=== PATIENT | female | born 1950 | race Two or more races ===

== ENCOUNTER 2017-07-21 04:51 | Inpatient (IN) | payer SELFPAY ==
[~2017-07-21] VITALS: Ht 157.5 cm; Wt 68.0 kg
[2017-07-21] VITALS (20 sets, daily range): BP systolic 70–156; BP diastolic 35–94
[2017-07-21] MEDS ORDERED: Morphine Sulfate 4mg/ml Inj IVP ONE (05:00)
--- NOTE | 2017-07-21 05:03 | Emergency Room Report ---
History of Present Illness General Chief Complaint: Abdominal Pain Source: Patient (RAYNA GORE M.D.) Present Illness HPI This is a 66-year-old female with no past medical history. However she hasn't seen a doctor in many decades. She presents with chief complaint abdominal pain his been on off for 2 weeks. Been getting worse. Per her she's been having fever nightly. It was worse tonight so he called 911. Patient has vomiting and diarrhea. [id number] medication for diarrhea helped. Pain is diffuse in nature. Crampy. Sharp. 8/10. No urinary complaint. He said that fever was high tonight and she was delirious. (RAYNA GORE M.D.) Allergies: Coded Allergies: No Known Allergies (Unverified , 07/21/17) Patient History Past Medical History: none, see triage record, old chart reviewed Past Surgical History: Pertinent Family History: none Social History: Denies: smoking Now: No Immunizations: other Reviewed Nursing Documentation: PMH: Agreed, PSxH: Agreed (RAYNA GORE M.D.) Review of Systems Constitutional: Reports: fever Eye: Denies: eye pain, blurred vision ENT: Denies: ear pain, nose congestion, throat swelling Respiratory: Denies: cough, shortness of breath Cardiovascular: Denies: chest pain, palpitations Gastrointestinal: Reports: abdominal pain, diarrhea, nausea, vomiting Musculoskeletal: Denies: back pain, joint pain Skin: Denies: rash Neurological: Denies: headache, numbness Endocrine: Denies: increased thirst, increased urine Hematologic/Lymphatic: Denies: easy bruising All Other Systems: negative except mentioned in HPI (RAYNA GORE M.D.) Physical Exam Vital Signs Date Time Temp Pulse Resp B/P (MAP) Pulse Ox O2 Delivery O2 Flow Rate FiO2 07/21/17 04:51 97.0 90 24 89/50 95 Room Air vitals with hypotension Sp02 EP Interpretation: reviewed, normal General Appearance: well appearing, no apparent distress, alert Head: normocephalic, atraumatic Eyes: bilateral eye PERRL, bilateral eye EOMI ENT: hearing grossly normal, normal pharynx Neck: full range of motion, supple, no meningismus Respiratory: chest non-tender, lungs clear, normal breath sounds Cardiovascular #1: regular rate, rhythm, no murmur Gastrointestinal: normal bowel sounds, no mass, no organomegaly, no bruit, non- distended, tenderness - Diffuse Musculoskeletal: back normal, normal range of motion Neurologic: alert, oriented x3 Psychiatric: mood/affect normal Skin: warm/dry (RAYNA GORE M.D.) Procedures Critical Care Time Critical Care Time Critical care is mandated in this patient who presented with septic shock from peritonitis. Patient require my urgent intervention to attenuate the risks of metabolic collapse which may lead to cardiovascular collapse and . Critical care time is 35 minutes excluding any reportable procedure. Critical care time included evaluation, multiple reevaluation, looking at old charts, interpreting laboratory and diagnostic data, discussing case with patient and family and consultants, and charting. (RAYNA GORE M.D.) Medical Decision Making Diagnostic Impression: Primary Impression: Peritonitis (acute) generalized Additional Impressions: ARF (acute renal failure) Qualified Codes: N17.9 - Acute kidney failure, unspecified Diabetes mellitus, new onset Acute cholangitis Septic shock ER Course This patient presents with abdominal pain and fever for the last 2 weeks. On exam she has peritonitis. CT scan reading is pending. Her white count is extremely high with a bandemia. She has renal failure and high glucose. Antibiotics given. IV fluid given. Patient will be going to the ICU. Laboratory Tests Test 07/21/17 05:00 White Blood Count 42.2 K/UL (4.8-10.8) *H Red Blood Count 5.13 M/UL (4.20-5.40) Hemoglobin 14.8 G/DL (12.0-16.0) Hematocrit 44.9 % (37.0-47.0) Mean Corpuscular Volume 88 FL (80-99) Mean Corpuscular Hemoglobin 28.9 PG (27.0-31.0) Mean Corpuscular Hemoglobin Concent 33.1 G/DL (32.0-36.0) Red Cell Distribution Width 13.7 % (11.6-14.8) Platelet Count 13 K/UL (150-450) L Mean Platelet Volume 8.2 FL (6.5-10.1) Neutrophils (%) (Auto) % (45.0-75.0) Lymphocytes (%) (Auto) % (20.0-45.0) Monocytes (%) (Auto) % (1.0-10.0) Eosinophils (%) (Auto) % (0.0-3.0) Basophils (%) (Auto) % (0.0-2.0) Differential Total Cells Counted 100 Neutrophils % (Manual) 71 % (45-75) Lymphocytes % (Manual) 4 % (20-45) L Monocytes % (Manual) 6 % (1-10) Eosinophils % (Manual) 0 % (0-3) Basophils % (Manual) 0 % (0-2) Band Neutrophils 19 % (0-8) H Platelet Estimate Decreased L Platelet Morphology Normal Red Blood Cell Morphology Normal Prothrombin Time 10.4 SEC (9.30-11.50) Prothromb Time International Ratio 1.0 (0.9-1.1) Activated Partial Thromboplast Time 34 SEC (23-33) H Sodium Level 122 MMOL/L (136-145) L Potassium Level 3.9 MMOL/L (3.5-5.1) Chloride Level 82 MMOL/L (98-107) L Carbon Dioxide Level 16 MMOL/L (21-32) L Anion Gap 25 mmol/L (5-15) H Blood Urea Nitrogen 101 mg/dL (7-18) H Creatinine 5.8 MG/DL (0.55-1.30) H Estimat Glomerular Filtration Rate 7.3 mL/min (>60) Glucose Level 458 MG/DL (74-106) H Lactic Acid Level 11.10 mmol/L (0.66-2.22) H Calcium Level 9.2 MG/DL (8.5-10.1) Total Bilirubin 9.9 MG/DL (0.2-1.0) H Direct Bilirubin 8.6 MG/DL (0.0-0.3) H Aspartate Amino Transf (AST/SGOT) 215 U/L (15-37) H Alanine Aminotransferase (ALT/SGPT) 208 U/L (12-78) H Alkaline Phosphatase 840 U/L (46-116) H Total Protein 6.4 G/DL (6.4-8.2) Albumin 1.9 G/DL (3.4-5.0) L Globulin 4.5 g/dL Albumin/Globulin Ratio 0.4 (1.0-2.7) L Lab Results Impression labs with severe leukocytosis and bandemia. Also with renal failure and biliary obstruction (RAYNA GORE M.D.) ER Course I received signout 66-year-old female, abdominal pain, has not seen a doctor in many years, tachycardic, hypotensive Has received Zosyn and Levaquin, currently have received 1.5 L, pending further fluid resuscitation, current blood pressure is 99/48 with a map of 61. Heart rate is 77 Patient currently states that she feels better, after fluids and pain medication , her abdomen is not peritoneal at this time, however she does have some right upper quadrant tenderness Patient has a white count of 40, elevated LFTs. ARF, potassium 3.9. patient is making urine. CAT scan of the abdomen pelvis revealing heterogeneous mass versus abscess versus infarction versus neoplasm in liver, with locules branching gas/air. Patient with acute cholangitis based on CT findings, and clinical exam. I spoke to Dr Villagomez who is aware of patient's case, also noted that Dr Carroll from GI is also aware of patient. I spoke to Dr. Baum from surgery who is notified of the case. Patient to be admitted to ICU (Stephanie Khan M.D.) EKG Diagnostic Results Rate: normal Rhythm: NSR ST Segments: no acute changes (RAYNA GORE M.D.) Rhythm Strip Diag. Results Rhythm Strip Time: 06:29 EP Interpretation: yes Rate: 81 Rhythm: NSR, no PVC's, no ectopy (RAYNA GORE M.D.) CT/MRI/US Diagnostic Results CT/MRI/US Diagnostic Results : Imaging Test Ordered: CT abd and pelvis (RAYNA GORE M.D.) Last Vital Signs Date Time Temp Pulse Resp B/P (MAP) Pulse Ox O2 Delivery O2 Flow Rate FiO2 07/21/17 04:51 97.0 90 24 89/50 95 Room Air Status: improved (RAYNA GORE M.D.) Disposition: ADMITTED INPATIENT Condition: Critical Scripts No Active Prescriptions or Reported Meds RAYNA GORE M.D. Jul 21, 2017 05:03 Stephanie Khan M.D. Jul 21, 2017 06:58
[2017-07-21] MEDS ORDERED: Tubing IV Cassette IV ONE (05:05)
[2017-07-21 05:21] LABS: MEAN CORPUSCULAR HEMOGLOBIN 28.9 PG (27.0-31.0); MEAN CORPUSCULAR HGB CONC 33.1 G/DL (32.0-36.0); MEAN CORPUSCULAR VOLUME 88 FL (80-99); MEAN PLATELET VOLUME 8.2 FL (6.5-10.1); PLATELET COUNT 13 K/UL (150-450); RED BLOOD COUNT 5.13 M/UL (4.20-5.40); RED CELL DISTRIBUTION WIDTH 13.7 % (11.6-14.8)
[2017-07-21 05:29] LABS: WHITE BLOOD COUNT 42.2 K/UL (4.8-10.8)
[2017-07-21 05:34] LABS: ANION GAP 25 mmol/L (5-15); CALCIUM 9.2 MG/DL (8.5-10.1); CARBON DIOXIDE 16 MMOL/L (21-32); CHLORIDE 82 MMOL/L (98-107); CREATININE 5.8 MG/DL (0.55-1.30); GLOMERULAR FILTRATION RATE 7.3 mL/min (>60); POTASSIUM 3.9 MMOL/L (3.5-5.1); SODIUM 122 MMOL/L (136-145)
[2017-07-21 05:41] LABS: PROTHROMBIN TIME 10.4 SEC (9.30-11.50)
[2017-07-21 05:48] LABS: ALANINE AMINOTRANSFERASE 208 U/L (12-78); ALBUMIN/GLOBULIN RATIO 0.4 (1.0-2.7); ASPARTATE AMINO TRANSFERASE 215 U/L (15-37); TOTAL PROTEIN 6.4 G/DL (6.4-8.2)
[2017-07-21 05:52] LABS: BILIRUBIN,DIRECT 8.6 MG/DL (0.0-0.3); REFLEX LACTIC ACID YES OR NO YES
[2017-07-21 05:56] LABS: BAND NEUTROPHILS % (MANUAL) 19 % (0-8); LYMPHOCYTES % (MANUAL) 4 % (20-45); NEUTROPHILS % (MANUAL) 71 % (45-75); TOTAL CELLS COUNTED 100
[2017-07-21] MEDS ORDERED: Zosyn 3.375gm inj ONE (05:56)
[2017-07-21 05:58] LABS: BASOPHILS % (MANUAL) 0 % (0-2); EOSINOPHILS % (MANUAL) 0 % (0-3); PLATELET ESTIMATE DECREASED
[2017-07-21 05:59] LABS: PLATELET MORPHOLOGY NORMAL
[2017-07-21] MEDS ORDERED: Piperacillin/Tazobactam 3.375 GM in NS 55 ML IVPB ONE (06:00)
[2017-07-21 06:42] LABS: APPEARANCE,URINE VERY CLOUDY; KETONES,URINE NEGATIVE (NEGATIVE); LEUKOCYTE ESTERASE ,URINE 3+ (NEGATIVE); NITRITE,URINE NEGATIVE (NEGATIVE); PH,URINE 5 (4.5-8.0); PROTEIN,URINE 3+ (NEGATIVE); UROBILINOGEN,URINE 4 MG/DL (0.0-1.0)
[2017-07-21 06:55] LABS: AMORPHOUS SEDIMENT,UR MANY /LPF; BACTERIA,URINE MODERATE /HPF; ICTOTEST POSITIVE; SQUAMOUS EPITHELIAL CELL,UR MODERATE /LPF (NONE/OCC)
[2017-07-21] MEDS ORDERED: Acetaminophen 500mg (ES) tab ORAL PRN ×2 (09:45→10:00)
[2017-07-21] MEDS ORDERED: D5NS 1,000 ML IV SCH (10:00)
[2017-07-21] MEDS ORDERED: D5 1/2NS 1,000 ML IV SCH (10:15)
--- NOTE | 2017-07-21 10:27 | Diagnostic Imaging Report ---
Indication: Abdominal pain x8 days Technique: Spiral acquisitions obtained through the abdomen and pelvis. No oral contrast utilized, per emergency room physician request No IV contrast utilized, per referring physician request.. Multiplanar reconstructions were generated. Total dose length product 961 mGycm. CTDIvol(s) 18 mGy. Dose reduction achieved using automated exposure control Comparison: None Findings: Lack of IV contrast limits assessment of the solid organs. Liver is mildly enlarged. There is a large area of low attenuation within the liver. This involves predominantly segments 8 and 5. Gas bubbles are seen at the periphery of this which appear equivocally somewhat tubular. There is a large calcified gallstone. The gallbladder is nondistended. No biliary ductal dilatation. The pancreas, spleen, adrenals, kidneys are unremarkable. No mesenteric or retroperitoneal mass or adenopathy. No pelvic mass or adenopathy. The uterus contains a marked artery calcifications. There is extensive colonic diverticulosis. The appendix is normal. No small bowel distention. No free or loculated intraperitoneal air or fluid is evident. The distal esophagus, stomach, duodenum are unremarkable. There are bilateral fat-containing small inguinal hernias. The included lung bases demonstrate considerable atelectatic changes. There are degenerative changes of the lumbar spine. There are degenerative changes of both hips. Impression: Masslike lesion in the right hepatic lobe, as described. This could represent abscess, neoplasm, or infarct. Recommend followup CT or MRI imaging with contrast if possible Tubular gas at the periphery of the lesion. This could represent pneumobilia, but the fact that all of the gas appears related to the above lesion raises concern for infection with gas-forming organism Mild hepatomegaly Cholelithiasis Diverticulosis. No evidence of diverticulitis Considerable basilar bilateral pulmonary atelectatic changes Other findings as noted, including degenerative spondylosis, degenerative changes of both hips, bilateral fat-containing inguinal hernias. This agrees with the preliminary interpretation provided overnight by [facility]. The CT scanner at [facility] is accredited by the [employer] and the scans are performed using protocols designed to limit radiation exposure to as low as reasonably achievable to attain images of sufficient resolution adequate for diagnostic evaluation.
--- NOTE | 2017-07-21 10:33 | Consultation ---
History of Present Illness General Date patient seen: Jul 21, 2017 Chief Complaint: Abdominal Pain Present Illness HPI 66 year old female presented to ED complaining of worsening abdominal pain for 2 weeks. As per patient she first began to note some vague upper abdominal pain 2 weeks ago. She does not regularly see a medical doctor so she decided to wait for pain to resolve. Pain progressively worsened over the subsequent days. Pain described as generalized cramping upper abdominal pain with sharp RUQ pain intermittently. Pain associated with nausea and episodes of non bloody emesis. Patient states she was febrile with night sweats for the past few nights. As her condition did not improve she came to ED for evaluation. In ED she was found to have leukocytosis >40k, abdominal tenderness, renal insufficiency, elevated LFT's, lactic acid 11, t bili>10. CT scan demonstrated air in biliary tree and "mass" in anterior lateral liver. Surgery called to evaluate. When seen at bedside, patient states that she is feeling much better since she received fluid resuscitation and pain meds. currently no nausea or emesis. patient states she has not seen a doctor in years and does not know of any medical problems. she does not believe she has any medical problems. she cannot recall any surgery prior. Allergies: Coded Allergies: No Known Allergies (Unverified , 07/21/17) Medication History No Active Prescriptions or Reported Meds Patient History History Provided By: Patient Healthcare decision maker Resuscitation status Advanced Directive on File Past Medical/Surgical History Past Medical/Surgical History: (1) Acute cholangitis (2) Diabetes mellitus, new onset (3) Septic shock (4) Peritonitis (acute) generalized (5) ARF (acute renal failure) (6) Thrombocytopenia Review of Systems Constitutional: Reports: chills, sweats, fever, malaise Eye: Denies: no symptoms, see HPI, eye pain, blurred vision, tearing, double vision, nose pain, nose congestion, acuity changes, discharge, other ENT: Denies: no symptoms, see HPI, ear pain, ear discharge, nose pain, nose congestion, throat pain, throat swelling, mouth pain, hearing loss, nasal discharge, other Respiratory: Denies: no symptoms, see HPI, cough, orthopnea, shortness of breath, stridor, wheezing, ARANGO, sputum, other Cardiovascular: Denies: no symptoms, see HPI, chest pain, edema, palpitations, syncope, PND, other Gastrointestinal: Reports: abdominal pain, nausea, vomiting Genitourinary: Denies: no symptoms, see HPI, discharge, dysuria, frequency, hematuria, pain, retention, incontinence, urgency, vag bleed/dc, other Musculoskeletal: Denies: no symptoms, see HPI, back pain, gout, joint pain, joint swelling, muscle pain, muscle stiffness, other Skin: Denies: no symptoms, see HPI, rash, change in color, change in hair/nails , dryness, lesions, other Psychiatric: Denies: no symptoms, see HPI, prior hx, anxiety, depressed feelings, emotional problems, SI, HI, hallucinations, other Neurological: Denies: no symptoms, see HPI, headache, numbness, paresthesia, seizure, tingling, tremors, focal weakness, syncope, dizziness, other Endocrine: Denies: no symptoms, see HPI, excessive sweating, flushing, intolerance to temperature, increased thirst, increased urine, unexplained weight loss, other Hematologic/Lymphatic: Denies: no symptoms, see HPI, anemia, blood clots, easy bleeding, easy bruising, swollen glands, diathesis, other All Other Systems: negative except mentioned in HPI Physical Exam General Appearance: no apparent distress, alert Lines, tubes and drains: peripheral HEENT: PERRL Neck: normal inspection Respiratory/Chest: no respiratory distress, no accessory muscle use, respiratory distress Cardiovascular/Chest: regular rhythm, tachycardia Abdomen: normal bowel sounds, soft, no organomegaly, no mass, other - no peritonitis or acute abdomen. soft, non distended, obese, no rebound or guarding but does states mild pain upon palpation of upper right and left quadrant Extremities: normal inspection Skin Exam: normal pigmentation Neurologic: alert, oriented x 3, responsive Last 24 Hour Vital Signs Date Time Temp Pulse Resp B/P (MAP) Pulse Ox O2 Delivery O2 Flow Rate FiO2 07/21/17 08:00 97.0 80 22 99/46 94 Nasal Cannula 4.0 07/21/17 07:52 80 22 99/46 94 Nasal Cannula 4.0 07/21/17 06:41 97.0 78 22 99/48 94 Nasal Cannula 4.0 07/21/17 05:50 97.0 07/21/17 04:51 97.0 90 24 89/50 95 Room Air Intake and Output 07/21/17 07/22/17 19:00 07:00 Intake Total 2205 ml Output Total 70 ml Balance 2135 ml Intake IV Total 2205 ml Output Urine Total 70 ml Laboratory Tests Test 07/21/17 05:00 07/21/17 06:20 07/21/17 07:00 07/21/17 09:30 White Blood Count 42.2 K/UL (4.8-10.8) *H Red Blood Count 5.13 M/UL (4.20-5.40) Hemoglobin 14.8 G/DL (12.0-16.0) Hematocrit 44.9 % (37.0-47.0) Mean Corpuscular Volume 88 FL (80-99) Mean Corpuscular Hemoglobin 28.9 PG (27.0-31.0) Mean Corpuscular Hemoglobin Concent 33.1 G/DL (32.0-36.0) Red Cell Distribution Width 13.7 % (11.6-14.8) Platelet Count 13 K/UL (150-450) L Mean Platelet Volume 8.2 FL (6.5-10.1) Neutrophils (%) (Auto) % (45.0-75.0) Lymphocytes (%) (Auto) % (20.0-45.0) Monocytes (%) (Auto) % (1.0-10.0) Eosinophils (%) (Auto) % (0.0-3.0) Basophils (%) (Auto) % (0.0-2.0) Differential Total Cells Counted 100 Neutrophils % (Manual) 71 % (45-75) Lymphocytes % (Manual) 4 % (20-45) L Monocytes % (Manual) 6 % (1-10) Eosinophils % (Manual) 0 % (0-3) Basophils % (Manual) 0 % (0-2) Band Neutrophils 19 % (0-8) H Platelet Estimate Decreased L Platelet Morphology Normal Red Blood Cell Morphology Normal Prothrombin Time 10.4 SEC (9.30-11.50) Prothromb Time International Ratio 1.0 (0.9-1.1) Activated Partial Thromboplast Time 34 SEC (23-33) H Sodium Level 122 MMOL/L (136-145) L Potassium Level 3.9 MMOL/L (3.5-5.1) Chloride Level 82 MMOL/L (98-107) L Carbon Dioxide Level 16 MMOL/L (21-32) L Anion Gap 25 mmol/L (5-15) H Blood Urea Nitrogen 101 mg/dL (7-18) H Creatinine 5.8 MG/DL (0.55-1.30) H Estimat Glomerular Filtration Rate 7.3 mL/min (>60) Glucose Level 458 MG/DL (74-106) H Lactic Acid Level 11.10 mmol/L (0.66-2.22) H 4.30 mmol/L (0.66-2.22) H Calcium Level 9.2 MG/DL (8.5-10.1) Total Bilirubin 9.9 MG/DL (0.2-1.0) H Direct Bilirubin 8.6 MG/DL (0.0-0.3) H Aspartate Amino Transf (AST/SGOT) 215 U/L (15-37) H Alanine Aminotransferase (ALT/SGPT) 208 U/L (12-78) H Alkaline Phosphatase 840 U/L (46-116) H Total Protein 6.4 G/DL (6.4-8.2) Albumin 1.9 G/DL (3.4-5.0) L Globulin 4.5 g/dL Albumin/Globulin Ratio 0.4 (1.0-2.7) L Urine Color Brown Urine Appearance Very cloudy Urine pH 5 (4.5-8.0) Urine Specific [place] 1.015 (1.005-1.035) Urine Protein 3+ (NEGATIVE) H Urine Glucose (UA) 2+ (NEGATIVE) H Urine Ketones Negative (NEGATIVE) Urine Occult Blood 3+ (NEGATIVE) H Urine Nitrite Negative (NEGATIVE) Urine Bilirubin 2+ (NEGATIVE) H Urine Ictotest Positive Urine Urobilinogen 4 MG/DL (0.0-1.0) H Urine Leukocyte Esterase 3+ (NEGATIVE) H Urine RBC 5-10 /HPF (0 - 2) H Urine WBC 5-10 /HPF (0 - 2) H Urine Squamous Epithelial Cells Moderate /LPF (NONE/OCC) H Urine Amorphous Sediment Many /LPF (NONE) H Urine Bacteria Moderate /HPF (NONE) H Troponin I Pending Triglycerides Level Pending Cholesterol Level Pending LDL Cholesterol Pending HDL Cholesterol Pending Cholesterol/HDL Ratio Pending Height (Feet): 5 Height (Inches): 3.00 Weight (Pounds): 150 Medications Current Medications Medications (Trade) Dose Ordered Sig/Eleanor Route PRN Reason Start Time Stop Time Status Last Admin Dose Admin Acetaminophen (Tylenol) 500 mg Q8H PRN ORAL For Pain 07/21/17 09:45 08/20/17 09:44 Acetaminophen (Tylenol) 500 mg Q8H PRN ORAL Temp> 100.5 07/21/17 10:00 08/20/17 09:59 Dextrose (Dextrose 50%) STAT PRN IV Hypoglycemia 07/21/17 10:15 08/20/17 10:14 UNV Dextrose/Sodium Chloride 1,000 ml @ 60 mls/hr [id number] IV 07/21/17 10:15 08/20/17 10:14 UNV Diphenhydramine HCl (Benadryl) 12.5 mg Q6H PRN IVP Itching/Pruritis 07/21/17 10:15 08/20/17 10:14 UNV Famotidine (Pepcid I.v.) 20 mg Q12HR IVP 07/21/17 21:00 08/20/17 20:59 UNV Insulin Aspart (NovoLOG) BEFORE MEALS AND HS SUBQ 07/21/17 11:30 08/20/17 11:29 UNV Morphine Sulfate (Morphine Sulfate) 1 mg Q4H PRN IVP pain scale 1-3 07/21/17 10:15 07/28/17 10:14 UNV Ondansetron HCl (Zofran) 4 mg Q6H PRN IVP Nausea & Vomiting 07/21/17 10:15 08/20/17 10:14 UNV Piperacillin Sod/ Tazobactam Sod 2.25 gm/Dextrose 55 ml @ 110 mls/hr Q12H IV 07/21/17 18:00 07/28/17 17:59 Sodium Chloride 1,000 ml @ 999 mls/hr Q1H1M PRN IV For SBP less than 100mmHg 07/21/17 09:45 08/20/17 09:44 Vancomycin HCl (Vanco rx to dose) 1 ea DAILY PRN MISC Per rx protocol 07/21/17 08:45 08/20/17 08:44 Vancomycin HCl/ Dextrose 250 ml @ 166.667 mls/hr ONCE ONCE IVPB 07/21/17 11:00 07/21/17 12:29 Assessment/Plan Problem List: (1) Cholelithiasis with acute cholangitis Assessment & Plan: 66 year old female with likely acute cholangitis. Currently afebrile but has been having fevers for days, tachycardic, hypotensive upon admission responsive to fluids, leukocytosis of 40+k, renal insufficiency, dehydration, abnormal lft's, uncontrolled DM, CT scan as above, exam as above. Patient is very sick with prolonged acute cholangitis prior to admission. fortunately she is responding to fluids and Abx. CT scan limited given lack of contrast. cannot give contrast at this time given renal insufficiency. -NPO -IV fluid resuscitation -IV Abx -Ultrasound Abdomen -GI to evaluate. given elevated t bili with direct component seems obstructive in nature. if still obstructed will require ERCP. possible MRCP first? will discuss with GI. -continue to trend labs -will follow with you. thank you for allowing me to participate in this patients care. ICD Codes: K80.20 - Calculus of gallbladder without cholecystitis without obstruction; K83.0 - Cholangitis SNOMED: [id number], [id number] Status: stable Tai Baum Jul 21, 2017 10:33
--- NOTE | 2017-07-21 10:38 | Pulmonolgy Critical Care Note ---
Critical Care - Asmt/Plan Problems: (1) ARF (acute renal failure) (2) Septic shock (3) Acute cholangitis Respiratory: monitor respiratory rate, adjust FIO2 Cardiac: continue to monitor HR/BP Renal: F/U I&O, keep IV fluid Infectious Disease: check cultures, continue antibiotics Gastrointestinal: hold feedings Endocrine: monitor blood sugar Hematologic: monitor H/H, transfuse if hgb<8.5 Neurologic: PRN Ativan, PRN Morphine, keep patient comfortable Notes Reviewed: brake repairer, cardio Discussed with: nurses, consultants, piano case makerdigital marketing project manager - Objective Last 24 Hour Vital Signs Date Time Temp Pulse Resp B/P (MAP) Pulse Ox O2 Delivery O2 Flow Rate FiO2 07/21/17 10:00 77 23 106/41 92 Nasal Cannula 3.0 07/21/17 09:00 76 21 99/43 93 Nasal Cannula 3.0 07/21/17 08:00 97.0 80 22 99/46 94 Nasal Cannula 4.0 07/21/17 08:00 97.9 78 21 121/53 93 Nasal Cannula 3.0 07/21/17 07:52 80 22 99/46 94 Nasal Cannula 4.0 07/21/17 06:41 97.0 78 22 99/48 94 Nasal Cannula 4.0 07/21/17 05:50 97.0 07/21/17 04:51 97.0 90 24 89/50 95 Room Air Status: awake Condition: critical HEENT: atraumatic Neck: full ROM Lungs: clear, chest wall tender Heart: HR/BP stable, HR/BP unstable Abdomen: soft, non-tender, active bowel sounds Extremities: no C/C/E, edema Critical Care - Subjective ROS Limited/Unobtainable: Yes ICU Day: 1 Interval Events: 66-year-old female with no past medical history presented to ER with chief complaint of abdominal pain for 2 weeks. she's been having fever nightly. She has vomiting and diarrhea. She was diagnosed with septic shock and acute cholangitis with accompanying ATN and hypotension. She is admitted to ICU for further referral. I&O: Intake and Output 07/21/17 07/22/17 19:00 07:00 Intake Total 2205 ml Output Total 70 ml Balance 2135 ml Intake IV Total 2205 ml Output Urine Total 70 ml CXR: cxr pending Labs: Laboratory Tests Test 07/21/17 05:00 07/21/17 06:20 07/21/17 07:00 07/21/17 09:30 White Blood Count 42.2 K/UL (4.8-10.8) *H Red Blood Count 5.13 M/UL (4.20-5.40) Hemoglobin 14.8 G/DL (12.0-16.0) Hematocrit 44.9 % (37.0-47.0) Mean Corpuscular Volume 88 FL (80-99) Mean Corpuscular Hemoglobin 28.9 PG (27.0-31.0) Mean Corpuscular Hemoglobin Concent 33.1 G/DL (32.0-36.0) Red Cell Distribution Width 13.7 % (11.6-14.8) Platelet Count 13 K/UL (150-450) L Mean Platelet Volume 8.2 FL (6.5-10.1) Neutrophils (%) (Auto) % (45.0-75.0) Lymphocytes (%) (Auto) % (20.0-45.0) Monocytes (%) (Auto) % (1.0-10.0) Eosinophils (%) (Auto) % (0.0-3.0) Basophils (%) (Auto) % (0.0-2.0) Differential Total Cells Counted 100 Neutrophils % (Manual) 71 % (45-75) Lymphocytes % (Manual) 4 % (20-45) L Monocytes % (Manual) 6 % (1-10) Eosinophils % (Manual) 0 % (0-3) Basophils % (Manual) 0 % (0-2) Band Neutrophils 19 % (0-8) H Platelet Estimate Decreased L Platelet Morphology Normal Red Blood Cell Morphology Normal Prothrombin Time 10.4 SEC (9.30-11.50) Prothromb Time International Ratio 1.0 (0.9-1.1) Activated Partial Thromboplast Time 34 SEC (23-33) H Sodium Level 122 MMOL/L (136-145) L Potassium Level 3.9 MMOL/L (3.5-5.1) Chloride Level 82 MMOL/L (98-107) L Carbon Dioxide Level 16 MMOL/L (21-32) L Anion Gap 25 mmol/L (5-15) H Blood Urea Nitrogen 101 mg/dL (7-18) H Creatinine 5.8 MG/DL (0.55-1.30) H Estimat Glomerular Filtration Rate 7.3 mL/min (>60) Glucose Level 458 MG/DL (74-106) H Lactic Acid Level 11.10 mmol/L (0.66-2.22) H 4.30 mmol/L (0.66-2.22) H Calcium Level 9.2 MG/DL (8.5-10.1) Total Bilirubin 9.9 MG/DL (0.2-1.0) H Direct Bilirubin 8.6 MG/DL (0.0-0.3) H Aspartate Amino Transf (AST/SGOT) 215 U/L (15-37) H Alanine Aminotransferase (ALT/SGPT) 208 U/L (12-78) H Alkaline Phosphatase 840 U/L (46-116) H Total Protein 6.4 G/DL (6.4-8.2) Albumin 1.9 G/DL (3.4-5.0) L Globulin 4.5 g/dL Albumin/Globulin Ratio 0.4 (1.0-2.7) L Urine Color Brown Urine Appearance Very cloudy Urine pH 5 (4.5-8.0) Urine Specific [place] 1.015 (1.005-1.035) Urine Protein 3+ (NEGATIVE) H Urine Glucose (UA) 2+ (NEGATIVE) H Urine Ketones Negative (NEGATIVE) Urine Occult Blood 3+ (NEGATIVE) H Urine Nitrite Negative (NEGATIVE) Urine Bilirubin 2+ (NEGATIVE) H Urine Ictotest Positive Urine Urobilinogen 4 MG/DL (0.0-1.0) H Urine Leukocyte Esterase 3+ (NEGATIVE) H Urine RBC 5-10 /HPF (0 - 2) H Urine WBC 5-10 /HPF (0 - 2) H Urine Squamous Epithelial Cells Moderate /LPF (NONE/OCC) H Urine Amorphous Sediment Many /LPF (NONE) H Urine Bacteria Moderate /HPF (NONE) H Hemoglobin A1c 11.5 % (4.3-6.0) H Troponin I Pending Triglycerides Level Pending Cholesterol Level Pending LDL Cholesterol Pending HDL Cholesterol Pending Cholesterol/HDL Ratio Pending RICK LEY Jul 21, 2017 10:38
[2017-07-21 10:43] LABS: CHOLESTEROL 165 MG/DL (< 200); CHOLESTEROL/HDL RATIO 16.5 (3.3-4.4)
[2017-07-21] MEDS ORDERED: Morphine Sulfate 2mg/ml Inj IVP PRN (10:45)
[2017-07-21] MEDS ORDERED: DiphenhydrAMINE 50mg/ml Inj IVP PRN (10:45)
[2017-07-21] MEDS ORDERED: Vancomycin 1250mg/D5W 250ml IVPB ONE (11:00)
--- NOTE | 2017-07-21 11:10 | GI Initial Consult Note ---
Sybil Galvez N.PZion 07/21/17 1110: History of Present Illness General Date patient seen: Jul 21, 2017 Time patient seen: 10:53 Reason for Hospitalization: Abdominal Pain Referring physician: TISH SAAVEDRA Reason for Consultation: CHOLANGITIS Present Illness HPI This is a 66-year-old female with no past medical history. However she hasn't seen a doctor in many decades. She presents with chief complaint abdominal pain his been on off for 2 weeks. Been getting worse. Per her she's been having fever nightly. It was worse tonight so he called 911. Patient has vomiting and diarrhea. [id number] medication for diarrhea helped. Pain is diffuse in nature. Crampy. Sharp. 8/10. No urinary complaint. He said that fever was high tonight and she was delirious. GI consulted for cholangitis based on CT. 66 year old female presented to ED complaining of worsening abdominal pain for 2 weeks. As per patient she first began to note some vague upper abdominal pain 2 weeks ago. She does not regularly see a medical doctor so she decided to wait for pain to resolve. Pain progressively worsened over the subsequent days. Pain described as generalized cramping upper abdominal pain with sharp RUQ pain intermittently. Pain associated with nausea and episodes of non bloody emesis. Patient states she was febrile with night sweats for the past few nights. As her condition did not improve she came to ED for evaluation. In ED she was found to have leukocytosis >40k, abdominal tenderness, renal insufficiency, elevated LFT's, lactic acid 11, t bili>10. CT scan demonstrated air in biliary tree and "mass" in anterior lateral liver. Pt seen at bedside with by bedside. NAD with no active N/V/D. No medical history per patient. No history of endoscopic / colonoscopy. Home Meds No Active Prescriptions or Reported Meds Med list reviewed/reconciled: Yes Allergies: Coded Allergies: No Known Allergies (Unverified , 07/21/17) Patient History Limited by: medical condition History Provided By: Patient PMH Narrative Past Medical History: none, see triage record, old chart reviewed Past Surgical History: Pertinent Family History: none Social History: Denies: smoking Now: No Immunizations: other Social History: Denies: smoking, alcohol use, drug use, other Review of Systems All Other Systems: negative except mentioned in HPI Physical Exam Vital Signs Date Time Temp Pulse Resp B/P (MAP) Pulse Ox O2 Delivery O2 Flow Rate FiO2 07/21/17 04:51 97.0 90 24 89/50 95 Room Air 07/21/17 06:41 4.0 Sp02 EP Interpretation: reviewed, normal Labs Laboratory Tests Test 07/21/17 05:00 07/21/17 06:20 07/21/17 07:00 07/21/17 09:30 White Blood Count 42.2 K/UL (4.8-10.8) *H Red Blood Count 5.13 M/UL (4.20-5.40) Hemoglobin 14.8 G/DL (12.0-16.0) Hematocrit 44.9 % (37.0-47.0) Mean Corpuscular Volume 88 FL (80-99) Mean Corpuscular Hemoglobin 28.9 PG (27.0-31.0) Mean Corpuscular Hemoglobin Concent 33.1 G/DL (32.0-36.0) Red Cell Distribution Width 13.7 % (11.6-14.8) Platelet Count 13 K/UL (150-450) L Mean Platelet Volume 8.2 FL (6.5-10.1) Neutrophils (%) (Auto) % (45.0-75.0) Lymphocytes (%) (Auto) % (20.0-45.0) Monocytes (%) (Auto) % (1.0-10.0) Eosinophils (%) (Auto) % (0.0-3.0) Basophils (%) (Auto) % (0.0-2.0) Differential Total Cells Counted 100 Neutrophils % (Manual) 71 % (45-75) Lymphocytes % (Manual) 4 % (20-45) L Monocytes % (Manual) 6 % (1-10) Eosinophils % (Manual) 0 % (0-3) Basophils % (Manual) 0 % (0-2) Band Neutrophils 19 % (0-8) H Platelet Estimate Decreased L Platelet Morphology Normal Red Blood Cell Morphology Normal Prothrombin Time 10.4 SEC (9.30-11.50) Prothromb Time International Ratio 1.0 (0.9-1.1) Activated Partial Thromboplast Time 34 SEC (23-33) H Sodium Level 122 MMOL/L (136-145) L Potassium Level 3.9 MMOL/L (3.5-5.1) Chloride Level 82 MMOL/L (98-107) L Carbon Dioxide Level 16 MMOL/L (21-32) L Anion Gap 25 mmol/L (5-15) H Blood Urea Nitrogen 101 mg/dL (7-18) H Creatinine 5.8 MG/DL (0.55-1.30) H Estimat Glomerular Filtration Rate 7.3 mL/min (>60) Glucose Level 458 MG/DL (74-106) H Lactic Acid Level 11.10 mmol/L (0.66-2.22) H 4.30 mmol/L (0.66-2.22) H Calcium Level 9.2 MG/DL (8.5-10.1) Total Bilirubin 9.9 MG/DL (0.2-1.0) H Direct Bilirubin 8.6 MG/DL (0.0-0.3) H Aspartate Amino Transf (AST/SGOT) 215 U/L (15-37) H Alanine Aminotransferase (ALT/SGPT) 208 U/L (12-78) H Alkaline Phosphatase 840 U/L (46-116) H Total Protein 6.4 G/DL (6.4-8.2) Albumin 1.9 G/DL (3.4-5.0) L Globulin 4.5 g/dL Albumin/Globulin Ratio 0.4 (1.0-2.7) L Urine Color Brown Urine Appearance Very cloudy Urine pH 5 (4.5-8.0) Urine Specific [place] 1.015 (1.005-1.035) Urine Protein 3+ (NEGATIVE) H Urine Glucose (UA) 2+ (NEGATIVE) H Urine Ketones Negative (NEGATIVE) Urine Occult Blood 3+ (NEGATIVE) H Urine Nitrite Negative (NEGATIVE) Urine Bilirubin 2+ (NEGATIVE) H Urine Ictotest Positive Urine Urobilinogen 4 MG/DL (0.0-1.0) H Urine Leukocyte Esterase 3+ (NEGATIVE) H Urine RBC 5-10 /HPF (0 - 2) H Urine WBC 5-10 /HPF (0 - 2) H Urine Squamous Epithelial Cells Moderate /LPF (NONE/OCC) H Urine Amorphous Sediment Many /LPF (NONE) H Urine Bacteria Moderate /HPF (NONE) H Hemoglobin A1c 11.5 % (4.3-6.0) H Troponin I 0.000 ng/mL (0.000-0.056) Triglycerides Level 671 MG/DL (30-150) H Cholesterol Level 165 MG/DL (< 200) LDL Cholesterol 68 mg/dL (<100) HDL Cholesterol 10 MG/DL (40-60) L Cholesterol/HDL Ratio 16.5 (3.3-4.4) H General Appearance: well appearing, no apparent distress, alert Head: normocephalic EENT: PERRL/EOMI, normal ENT inspection Neck: supple Respiratory: normal breath sounds, no respiratory distress Cardiovascular: normal rate Gastrointestinal: normal inspection, non tender, soft, normal bowel sounds, non -distended Rectal: deferred Genitourinary: no CVA tenderness Musculoskeletal: normal inspection, back normal Neurologic: normal inspection, alert, oriented x3, responsive Psychiatric: normal inspection, judgement/insight normal, memory normal Skin: normal inspection, normal color, no rash, warm/dry, palpation normal, well hydrated Lymphatic: normal inspection, no adenopathy Current Medications Current Medications Medications (Trade) Dose Ordered Sig/Eleanor Route PRN Reason Start Time Stop Time Status Last Admin Dose Admin Acetaminophen (Tylenol) 500 mg Q8H PRN ORAL For Pain 07/21/17 09:45 08/20/17 09:44 Acetaminophen (Tylenol) 500 mg Q8H PRN ORAL Temp> 100.5 07/21/17 10:00 08/20/17 09:59 Dextrose (Dextrose 50%) STAT PRN IV Hypoglycemia 07/21/17 10:45 08/20/17 10:44 Diphenhydramine HCl (Benadryl) 12.5 mg Q6H PRN IVP Itching/Pruritis 07/21/17 10:45 08/20/17 10:44 Famotidine (Pepcid I.v.) 20 mg Q12HR IVP 07/21/17 21:00 08/20/17 20:59 Insulin Aspart (NovoLOG) BEFORE MEALS AND HS SUBQ 07/21/17 11:30 08/20/17 11:29 Morphine Sulfate (Morphine Sulfate) 1 mg Q4H PRN IVP pain scale 1-3 07/21/17 10:45 07/28/17 10:44 Ondansetron HCl (Zofran) 4 mg Q6H PRN IVP Nausea & Vomiting 07/21/17 10:45 08/20/17 10:44 Piperacillin Sod/ Tazobactam Sod 2.25 gm/Dextrose 55 ml @ 110 mls/hr Q12H IV 07/21/17 18:00 07/28/17 17:59 Sodium Chloride 1,000 ml @ 150 mls/hr Q6H40M IV 07/22/17 11:00 08/21/17 10:59 Sodium Chloride 1,000 ml @ 999 mls/hr Q1H1M PRN IV For SBP less than 100mmHg 07/21/17 09:45 08/20/17 09:44 07/21/17 10:52 Vancomycin HCl (Vanco rx to dose) 1 ea DAILY PRN MISC Per rx protocol 07/21/17 08:45 08/20/17 08:44 Vancomycin HCl/ Dextrose 250 ml @ 166.667 mls/hr ONCE ONCE IVPB 07/21/17 11:00 07/21/17 12:29 GI: Plan Problems: (1) Cholelithiasis with acute cholangitis (2) Peritonitis (acute) generalized (3) Thrombocytopenia (4) Septic shock (5) Diabetes mellitus, new onset (6) Acute cholangitis Plan CT AP reviewed >> likely with acute cholangitis elevated triglycerides will consider MRCP pending abdominal U/S, if obstructed ERCP when stable. NPO + IVFs IV antibiotics follow LFTs DM mgmt H2B prophylaxis fu labs, lipase Discussed with Dr. Espinoza. Thank you for this patient referral, we will follow. HARI ESPINOZA 07/23/17 1002: History of Present Illness General Reason for Hospitalization: Abdominal Pain Present Illness Home Meds No Active Prescriptions or Reported Meds Allergies: Coded Allergies: No Known Allergies (Unverified , 07/21/17) GI: Plan Plan The patient was seen and examined at bedside and all new and available data was reviewed in the patients chart. I agree with the above findings, impression and plan. (Patient seen earlier today. Signature stamp does not reflect patient encounter time.). - MD [facility]La [facility] Chris N.P. Jul 21, 2017 11:10 HARI ESPINOZA Jul 23, 2017 10:02
[2017-07-21 11:18] LABS: IRON 59 ug/dL (50-175); TOTAL IRON BINDING CAPACITY 166 ug/dL (250-450)
--- NOTE | 2017-07-21 11:28 | Consultation ---
Consult Note Consult Note asked to eval for renal failure This is a 66-year-old female with no past medical history. However she hasn't seen a doctor in many decades. She presents with chief complaint abdominal pain his been on off for 2 weeks. Been getting worse. Per her she's been having fever nightly. It was worse tonight so he called 911. Patient has vomiting and diarrhea. [id number] medication for diarrhea helped. Pain is diffuse in nature. Crampy. Sharp. 8/10. No urinary complaint. He said that fever was high tonight and she was delirious. Past Surgical History: Review of Systems Constitutional: Reports: fever Gastrointestinal: Reports: abdominal pain, diarrhea, nausea, vomiting examined- data reviewed discussed with automotive artist/Plan (1) ARF (acute renal failure) (2) Septic shock (3) Acute cholangitis (4) DM OOC (5) High Lipids Plan: Hydrate- NPO Antibiotics- Monitor renal parameters Kidney KEI 2D echo avoid nephrotoxics GIANCARLO ALBERT Jul 21, 2017 11:28
[2017-07-21] MEDS ORDERED: NovoLOG Insulin Flexpen SUBQ SCH (11:30)
--- NOTE | 2017-07-21 11:40 | Consultation ---
History of Present Illness General Date patient seen: Jul 21, 2017 Time patient seen: 11:39 Chief Complaint: Abdominal Pain Referring physician: TISH SAAVEDRA Reason for Consultation: CHOLANGITIS Present Illness HPI 66 y/o F with no pertinent prior medical history(but haven't seen a doctor in years) presents to ED on 07/01 with intermittent and worsening diffuse(but more prominent upper and RUQ), crampy abdominal pain of for the last 2 weeks with associated nightly fevers, vomiting(non bloody) and diarrhea. Abd pain intensity of 8/10 upon admission. Denies urinary symptoms In ED found to have WBC up to >40, ALEX, elevated LFTs, lactic acidosis and TBili >10. CT scan demonstrated air in biliary tree and "mass" in anterior lateral liver. Hypotensive now to 70s Allergies: Coded Allergies: No Known Allergies (Unverified , 07/21/17) Medication History No Active Prescriptions or Reported Meds Patient History Healthcare decision maker Resuscitation status Advanced Directive on File Patient History Narrative Pmhx: none; C section Shx: Denies: smoking, alcohol use, drug use, other Fhx: non contributory Review of Systems ROS Narrative unable to obtai, patient lethargic Physical Exam Physical Exam Narrative Status: lethargic, bipap mask in place Condition: critical HEENT: atraumatic Neck: full ROM Lungs: clear, chest wall tender Heart: no murmurs Abdomen: soft, non-tender, active bowel sounds Extremities: no C/C/E, edema Last 24 Hour Vital Signs Date Time Temp Pulse Resp B/P (MAP) Pulse Ox O2 Delivery O2 Flow Rate FiO2 07/21/17 10:00 77 23 106/41 92 Nasal Cannula 3.0 07/21/17 09:00 76 21 99/43 93 Nasal Cannula 3.0 07/21/17 08:05 97.9 78 21 121/53 93 Nasal Cannula 3.0 07/21/17 08:00 97.0 80 22 99/46 94 Nasal Cannula 4.0 07/21/17 08:00 97.9 78 21 121/53 93 Nasal Cannula 3.0 07/21/17 07:52 80 22 99/46 94 Nasal Cannula 4.0 07/21/17 06:41 97.0 78 22 99/48 94 Nasal Cannula 4.0 07/21/17 05:50 97.0 07/21/17 04:51 97.0 90 24 89/50 95 Room Air Intake and Output 07/21/17 07/22/17 19:00 07:00 Intake Total 2205 ml Output Total 210 ml Balance 1995 ml Intake IV Total 2205 ml Output Urine Total 210 ml Laboratory Tests Test 07/21/17 05:00 07/21/17 06:20 07/21/17 07:00 07/21/17 09:30 White Blood Count 42.2 K/UL (4.8-10.8) *H Red Blood Count 5.13 M/UL (4.20-5.40) Hemoglobin 14.8 G/DL (12.0-16.0) Hematocrit 44.9 % (37.0-47.0) Mean Corpuscular Volume 88 FL (80-99) Mean Corpuscular Hemoglobin 28.9 PG (27.0-31.0) Mean Corpuscular Hemoglobin Concent 33.1 G/DL (32.0-36.0) Red Cell Distribution Width 13.7 % (11.6-14.8) Platelet Count 13 K/UL (150-450) L Mean Platelet Volume 8.2 FL (6.5-10.1) Neutrophils (%) (Auto) % (45.0-75.0) Lymphocytes (%) (Auto) % (20.0-45.0) Monocytes (%) (Auto) % (1.0-10.0) Eosinophils (%) (Auto) % (0.0-3.0) Basophils (%) (Auto) % (0.0-2.0) Differential Total Cells Counted 100 Neutrophils % (Manual) 71 % (45-75) Lymphocytes % (Manual) 4 % (20-45) L Monocytes % (Manual) 6 % (1-10) Eosinophils % (Manual) 0 % (0-3) Basophils % (Manual) 0 % (0-2) Band Neutrophils 19 % (0-8) H Platelet Estimate Decreased L Platelet Morphology Normal Red Blood Cell Morphology Normal Reticulocyte Count Pending Prothrombin Time 10.4 SEC (9.30-11.50) Prothromb Time International Ratio 1.0 (0.9-1.1) Activated Partial Thromboplast Time 34 SEC (23-33) H Sodium Level 122 MMOL/L (136-145) L Potassium Level 3.9 MMOL/L (3.5-5.1) Chloride Level 82 MMOL/L (98-107) L Carbon Dioxide Level 16 MMOL/L (21-32) L Anion Gap 25 mmol/L (5-15) H Blood Urea Nitrogen 101 mg/dL (7-18) H Creatinine 5.8 MG/DL (0.55-1.30) H Estimat Glomerular Filtration Rate 7.3 mL/min (>60) Glucose Level 458 MG/DL (74-106) H Lactic Acid Level 11.10 mmol/L (0.66-2.22) H 4.30 mmol/L (0.66-2.22) H Uric Acid Pending Calcium Level 9.2 MG/DL (8.5-10.1) Iron Level 59 ug/dL (50-175) Total Iron Binding Capacity 166 ug/dL (250-450) L Percent Iron Saturation 36 % (15-50) Unsaturated Iron Binding 107 ug/dL (112-346) L Ferritin Pending Total Bilirubin 9.9 MG/DL (0.2-1.0) H Direct Bilirubin 8.6 MG/DL (0.0-0.3) H Aspartate Amino Transf (AST/SGOT) 215 U/L (15-37) H Alanine Aminotransferase (ALT/SGPT) 208 U/L (12-78) H Alkaline Phosphatase 840 U/L (46-116) H Total Creatine Kinase Pending Total Protein 6.4 G/DL (6.4-8.2) Albumin 1.9 G/DL (3.4-5.0) L Globulin 4.5 g/dL Albumin/Globulin Ratio 0.4 (1.0-2.7) L Folate Pending Thyroid Stimulating Hormone (TSH) Pending HIV (1&2) Antibody Rapid Negative (NEGATIVE) Urine Color Brown Urine Appearance Very cloudy Urine pH 5 (4.5-8.0) Urine Specific [place] 1.015 (1.005-1.035) Urine Protein 3+ (NEGATIVE) H Urine Glucose (UA) 2+ (NEGATIVE) H Urine Ketones Negative (NEGATIVE) Urine Occult Blood 3+ (NEGATIVE) H Urine Nitrite Negative (NEGATIVE) Urine Bilirubin 2+ (NEGATIVE) H Urine Ictotest Positive Urine Urobilinogen 4 MG/DL (0.0-1.0) H Urine Leukocyte Esterase 3+ (NEGATIVE) H Urine RBC 5-10 /HPF (0 - 2) H Urine WBC 5-10 /HPF (0 - 2) H Urine Squamous Epithelial Cells Moderate /LPF (NONE/OCC) H Urine Amorphous Sediment Many /LPF (NONE) H Urine Bacteria Moderate /HPF (NONE) H Hemoglobin A1c 11.5 % (4.3-6.0) H Troponin I 0.000 ng/mL (0.000-0.056) Triglycerides Level 671 MG/DL (30-150) H Cholesterol Level 165 MG/DL (< 200) LDL Cholesterol 68 mg/dL (<100) HDL Cholesterol 10 MG/DL (40-60) L Cholesterol/HDL Ratio 16.5 (3.3-4.4) H Height (Feet): 5 Height (Inches): 3.00 Weight (Pounds): 150 Medications Current Medications Medications (Trade) Dose Ordered Sig/Eleanor Route PRN Reason Start Time Stop Time Status Last Admin Dose Admin Acetaminophen (Tylenol) 500 mg Q8H PRN ORAL For Pain 07/21/17 09:45 08/20/17 09:44 Acetaminophen (Tylenol) 500 mg Q8H PRN ORAL Temp> 100.5 07/21/17 10:00 08/20/17 09:59 Dextrose (Dextrose 50%) STAT PRN IV Hypoglycemia 07/21/17 10:45 08/20/17 10:44 Diphenhydramine HCl (Benadryl) 12.5 mg Q6H PRN IVP Itching/Pruritis 07/21/17 10:45 08/20/17 10:44 Famotidine (Pepcid I.v.) 20 mg Q12HR IVP 07/21/17 21:00 08/20/17 20:59 Insulin Aspart (NovoLOG) BEFORE MEALS AND HS SUBQ 07/21/17 11:30 08/20/17 11:29 Morphine Sulfate (Morphine Sulfate) 1 mg Q4H PRN IVP pain scale 1-3 07/21/17 10:45 07/28/17 10:44 Ondansetron HCl (Zofran) 4 mg Q6H PRN IVP Nausea & Vomiting 07/21/17 10:45 08/20/17 10:44 Piperacillin Sod/ Tazobactam Sod 2.25 gm/Dextrose 55 ml @ 110 mls/hr Q12H IV 07/21/17 18:00 07/28/17 17:59 Sodium Chloride 1,000 ml @ 150 mls/hr Q6H40M IV 07/22/17 11:00 08/21/17 10:59 Sodium Chloride 1,000 ml @ 999 mls/hr Q1H1M PRN IV For SBP less than 100mmHg 07/21/17 09:45 08/20/17 09:44 07/21/17 10:52 Vancomycin HCl (Vanco rx to dose) 1 ea DAILY PRN MISC Per rx protocol 07/21/17 08:45 08/20/17 08:44 Vancomycin HCl/ Dextrose 250 ml @ 166.667 mls/hr ONCE ONCE IVPB 07/21/17 11:00 07/21/17 12:29 Assessment/Plan Assessment/Plan Abx: IV Vancomycin 07/21- IV Zosyn 07/21- Levaquin x1 07/21 Assesment: Severe sepsis 2ry to cholangitis -CT abd/p wo: Masslike lesion in the right hepatic lobe, as described. This could represent abscess, neoplasm, or infarct. Recommend followup CT or MRI imaging with contrast if possible. Tubular gas at the periphery of the lesion. This could represent pneumobilia, but the fact that all of the gas appears related to the above lesion raises concern for infection with gas-forming organism. Mild hepatomegaly. Cholelithiasis. Diverticulosis. No evidence of diverticulitis. Considerable basilar bilateral pulmonary atelectatic changes Hyperleukocytosis/leukemoid reaction-2ry to above Lactic acidosis- improving ALEX Acute liver injury: cholestatic pattern>hepatotoxic -2ry to above -hep serologies pending -HIV ag/ab neg Thrombocytopenia- profound- likely related to sepsis Pyuria- but no UTI symptoms Plan: -Continue IV Vancomycin and switch Zosyn to meropenem given worsening hypotension -f/u cultures -Appreciate GI and Gen sx input- possible MRCP/ERCP- will need some kind of source control intervention -Monitor CBC/CMP, temperatures Thank your for this consultation. Will continue to follow along with you. Discussed with Nicolette Mclean M.D. Jul 21, 2017 11:40
[2017-07-21 11:55] LABS: FERRITIN > 2000 NG/ML (8-388); THYROID STIMULATING HORMONE 0.621 uiU/mL (0.358-3.740); URIC ACID 12.4 MG/DL (2.6-7.2)
[2017-07-21 11:56] LABS: PATH BLOOD SMEAR/OMC SEND TO PATHOLOGIST; RETICULOCYTE COUNT 0.4 % (0.0-2.0)
[2017-07-21 12:06] LABS: REFLEX LACTIC ACID YES OR NO YES
[2017-07-21] MEDS: NovoLOG Insulin Flexpen SUBQ SCH ×3 (13:38→21:05)
--- NOTE | 2017-07-21 13:48 | History & Physical ---
History and Physical History & Physicial Seen and examined. Full HP Dictated # [id number] Logan Villagomez MD Jul 21, 2017 13:48
[2017-07-21 14:34] LABS: FOLIC ACID 25.6 NG/ML (8.6-58.9)
[2017-07-21 14:50] LABS: ABG ALLEN TEST POSITIVE; ABG BASE EXCESS -16.4; ABG PCO2 41.5 mmHg (35.0-45.0)
--- NOTE | 2017-07-21 16:04 | Diagnostic Imaging Report ---
Indication: DYSPNEA Technique: One view of the chest Comparison: None Findings: Inspiration is suboptimal. A large atelectasis is seen in the left perihilar region. Atelectatic changes are also seen at the right lung base. No focal consolidation. No definite effusions. Normal heart size Impression: Hypoventilatory exam with bibasilar atelectasis No acute process otherwise
[2017-07-21 16:18] LABS: ABG ALLEN TEST POSITIVE; ABG BASE EXCESS -13.6; ABG PCO2 26.4 mmHg (35.0-45.0)
[2017-07-21] MEDS ORDERED: Meropenem 1 GM in NS 55 ML IVPB SCH (17:00)
--- NOTE | 2017-07-21 17:45 | History and Physical Report ---
DATE OF ADMISSION: 07/21/2017 SOURCE OF INFORMATION: EMR. HISTORY OF PRESENT ILLNESS: The patient is a pleasant 66-year-old female. The patient has been transferred by the family members regarding the increasing abdominal pain. Positive for episodes of fever. The patient has been transferred with a 911 call. The patient is a poor historian. at the bedside. Within this limitation, no evidence of chest pain. No abnormal bleeding has been reported. PAST MEDICAL HISTORY: Denies. PAST SURGICAL HISTORY: . HOME MEDICATIONS: None. ALLERGIES: NKDA. FAMILY HISTORY: Reviewed and noncontributory. SOCIAL HISTORY: The patient lives with . Has moved to [place] for the last 10 years. No known illicit drug abuse, smoking, or alcohol abuse. PHYSICAL EXAMINATION: VITAL SIGNS: Blood pressure 90/pulse, pulse rate 80-90, temperature 95-97, respiratory rate 18-20 on 2 liters of nasal cannula with a pulse ox of 90% on BiPAP. HEAD AND NECK: Atraumatic and normocephalic. Positive for the diffuse scleral conjunctivitis in the sclerae. NEUROLOGIC: The patient is awake, alert, and oriented x3. However, the patient is sleepy and drowsy. ABDOMEN: Soft (status post receiving pain medication). MUSCULOSKELETAL: Limited examination for limited evaluation as the patient has pain over the deep palpation. No gross focal motor deficit. LABORATORY DATA: WBC 42, hemoglobin 14.8, and platelets 13. Sodium 122, potassium 3.9, BUN 101, and creatinine 5.8. Lactic acid 11. Iron saturation 36. Total bilirubin 9.9. ALT and AST 200. Albumin 1.9. INR 1. PTT 34. HDL 10. Triglycerides 671. IMAGING: Abdomen and pelvis CT scan dated 07/21/2017 is reviewed, it shows mass like lesion in the right side of the liver, positive for pneumobilia and positive for cholelithiasis. ASSESSMENT AND PLAN: 1. Septic shock. 2. Acute cholangitis. 3. Obstructive hepatobiliary disorder. 4. Diabetes type 2. 5. Liver mass-possibility of cancer cannot be excluded. 6. Hypertriglyceridemia. 7. Hyponatremia. 8. Hepatic failure-obstructive pattern. 9. Renal failure, age indeterminate. 10. Thrombocytopenia. PLAN OF CARE: Continue with current IV antibiotic including vancomycin and Zosyn. Continue with sliding scale insulin. Pain management. Infectious Disease, mission assessment specialist, liver specialist, and Nephrology are consulted. Logan Villagomez M.D. DR: LANDY JOB#: [id number] CC:
[2017-07-21] MEDS ORDERED: Zosyn 2.25 gm in D5W 55ml IV SCH (18:00)
[2017-07-22] VITALS (55 sets, daily range): BP systolic 69–188; BP diastolic 13–124
[2017-07-22] MEDS: NovoLOG Insulin Flexpen SUBQ SCH ×5 (00:28→16:41)
[2017-07-22] MEDS ORDERED: Levophed 4mg/4mL Inj IV ONE (03:07)
[2017-07-22] MEDS ORDERED: Lidocaine 1% Plain 30 ml INJ ONE ×2 (03:30→17:00)
--- NOTE | 2017-07-22 04:02 | Emergency Room Report ---
Physical Exam Asked to start a central line. Hypotension despite boluses of NS. Needs levophed. Septic shock. Last 24 Hour Vital Signs Date Time Temp Pulse Resp B/P (MAP) Pulse Ox O2 Delivery O2 Flow Rate FiO2 07/22/17 03:18 88 27 98 Full Face 50 07/22/17 03:13 69/19 07/22/17 03:00 86 22 69/19 97 Bi-pap 50 07/22/17 02:27 97 07/22/17 02:00 86 21 72/21 97 Bi-pap 50 07/22/17 01:30 88 28 98 Full Face 50 07/22/17 01:00 87 21 80/22 99 Bi-pap 50 07/22/17 00:00 98.7 91 24 87/26 100 Bi-pap 50 07/22/17 00:00 79 07/21/17 23:30 85 23 99 Full Face 50 07/21/17 23:00 95 23 123/50 99 Bi-pap 50 07/21/17 22:00 78 23 136/46 99 Bi-pap 50 07/21/17 22:00 80 18 98 Full Face 50 07/21/17 21:00 79 21 98/65 97 Bi-pap 50 07/21/17 20:00 79 07/21/17 20:00 98.3 78 20 95/42 97 Bi-pap 50 07/21/17 19:39 50 07/21/17 19:30 77 19 98 Full Face 50 07/21/17 19:30 97 Bi-pap 07/21/17 19:30 Bi-pap 07/21/17 19:00 80 22 108/40 97 Bi-pap 50 07/21/17 18:00 83 22 103/55 97 Bi-pap 50 07/21/17 17:07 83 21 98 Full Face 50 07/21/17 17:00 83 24 83/47 96 Bi-pap 50 07/21/17 16:00 87 07/21/17 16:00 83 24 87/41 99 Bi-pap 70 07/21/17 15:36 98.9 84 24 77/35 99 Bi-pap 70 07/21/17 15:10 50 07/21/17 15:03 94 20 Bi-pap 70 07/21/17 15:00 94 20 98 Full Face 70 07/21/17 15:00 86 24 70/36 99 Bi-pap 70 07/21/17 14:30 70 07/21/17 14:00 99 28 98/47 90 Non-Rebreather 100 07/21/17 14:00 100 07/21/17 13:00 98 28 103/56 95 Non-Rebreather 100 07/21/17 12:21 93 Nasal Cannula 4.0 07/21/17 12:21 Nasal Cannula 4.0 07/21/17 12:00 98.5 104 24 156/94 85 Nasal Cannula 07/21/17 12:00 79 07/21/17 11:00 90 23 109/40 93 Nasal Cannula 3.0 07/21/17 10:00 77 23 106/41 92 Nasal Cannula 3.0 07/21/17 09:00 76 21 99/43 93 Nasal Cannula 3.0 07/21/17 08:05 97.9 78 21 121/53 93 Nasal Cannula 3.0 07/21/17 08:00 97.0 80 22 99/46 94 Nasal Cannula 4.0 07/21/17 08:00 97.9 78 21 121/53 93 Nasal Cannula 3.0 07/21/17 07:52 80 22 99/46 94 Nasal Cannula 4.0 07/21/17 06:41 97.0 78 22 99/48 94 Nasal Cannula 4.0 07/21/17 05:50 97.0 07/21/17 04:51 97.0 90 24 89/50 95 Room Air Sp02 EP Interpretation: reviewed, normal - but relative hypoxia based on FIO2 General Appearance: no apparent distress, alert Head: normocephalic Eyes: bilateral eye normal inspection, bilateral eye PERRL ENT: moist mucus membranes, other - bipap mask on Neck: supple Respiratory: crackles Cardiovascular #1: regular rate, rhythm Cardiovascular #2: 1+ femoral (R) Gastrointestinal: non tender, decreased bowel sounds Genitourinary: other - bansal Musculoskeletal: back normal Neurologic: responsive, motor strength/tone normal, sensory intact Psychiatric: depressed affect Skin: normal color Central Line Central Line : Consent: Emergent Central Line Lumen: triple Maximal Sterile Barrier Tech: yes cap, yes mask, yes sterile gown, yes sterile gloves, yes large sterile sheet, yes hand hygiene, yes chlorhexidine prep Central Line Postion: femoral (R) Anesthesia: Lidocaine cc's of anesthesia: 7 Complications: none Central Line Post Position: sutured, good blood return Attempts: One Patient Tolerated: Well Complications: None Progress EBL = 12 ml (10 cc drawn for lab) Medical Decision Making Diagnostic Impression: Primary Impression: Peritonitis (acute) generalized Additional Impressions: ARF (acute renal failure) Qualified Codes: N17.9 - Acute kidney failure, unspecified Septic shock Diabetes mellitus, new onset Acute cholangitis ER Course I was asked to start a central line so the patient could receive Levophed. Patient with sepsic shock with initial lactate 11. She's been receiving aggressive fluid resuscitation. CVP was performed in the right femoral area. A blood sample was sent to the lab. Line was sutured. Patient tolerated the procedure well. Prognosis grave. Rhythm Strip Diag. Results EP Interpretation: yes Rhythm: NSR, no PVC's, no ectopy Last Vital Signs Date Time Temp Pulse Resp B/P (MAP) Pulse Ox O2 Delivery O2 Flow Rate FiO2 07/22/17 03:18 88 27 98 Full Face 50 07/22/17 03:13 69/19 07/22/17 00:00 98.7 07/21/17 12:21 4.0 Status: improved Disposition: ADMITTED INPATIENT Condition: Critical Scripts No Active Prescriptions or Reported Meds Referrals: NOT CHOSEN IPA/,REFERRING (PCP) Valente Mesa M.D. Jul 22, 2017 04:02
[2017-07-22 05:04] LABS: INR 1.1 (0.9-1.1); PROTHROMBIN TIME 11.4 SEC (9.30-11.50)
[2017-07-22 05:28] LABS: ALANINE AMINOTRANSFERASE 185 U/L (12-78); ALBUMIN/GLOBULIN RATIO 0.5 (1.0-2.7); ANION GAP 16 mmol/L (5-15); ASPARTATE AMINO TRANSFERASE 369 U/L (15-37); CALCIUM 7.5 MG/DL (8.5-10.1); CARBON DIOXIDE 17 MMOL/L (21-32); CHLORIDE 101 MMOL/L (98-107); CREATININE 4.8 MG/DL (0.55-1.30); GLOMERULAR FILTRATION RATE 9.1 mL/min (>60); MAGNESIUM 2.3 MG/DL (1.8-2.4); PHOSPHORUS 1.4 MG/DL (2.5-4.9); POTASSIUM 3.6 MMOL/L (3.5-5.1); SODIUM 134 MMOL/L (136-145)
[2017-07-22 05:45] LABS: MEAN CORPUSCULAR HEMOGLOBIN 28.7 PG (27.0-31.0); MEAN CORPUSCULAR HGB CONC 33.8 G/DL (32.0-36.0); MEAN CORPUSCULAR VOLUME 85 FL (80-99); MEAN PLATELET VOLUME 8.7 FL (6.5-10.1); PLATELET COUNT 15 K/UL (150-450); RED BLOOD COUNT 3.52 M/UL (4.20-5.40)
[2017-07-22 05:47] LABS: WHITE BLOOD COUNT 44.3 K/UL (4.8-10.8)
[2017-07-22 06:13] LABS: BILIRUBIN,DIRECT 11.1 MG/DL (0.0-0.3)
[2017-07-22 06:15] LABS: REFLEX LACTIC ACID YES OR NO YES
[2017-07-22 06:25] LABS: LIPASE 359 U/L (73-393)
[2017-07-22 06:35] LABS: URIC ACID 12.8 MG/DL (2.6-7.2)
[2017-07-22 07:53] LABS: CRP QUANT 31.8 mg/dL (0.00-0.90)
[2017-07-22 08:06] LABS: BAND NEUTROPHILS % (MANUAL) 4 % (0-8); BASOPHILS % (MANUAL) 0 % (0-2); EOSINOPHILS % (MANUAL) 0 % (0-3); HYPOCHROMASIA 1+; LYMPHOCYTES % (MANUAL) 5 % (20-45); NEUTROPHILS % (MANUAL) 85 % (45-75); PLATELET ESTIMATE DECREASED; TOTAL CELLS COUNTED 100
[2017-07-22 08:07] LABS: PLATELET MORPHOLOGY NORMAL
--- NOTE | 2017-07-22 08:15 | Consultation ---
DATE OF CONSULTATION: 07/21/2017 HEMATOLOGY/ONCOLOGY CONSULTATION CONSULTING PHYSICIAN: Adelso Sharma M.D. REFERRING PHYSICIAN: Logan Villagomez M.D. IDENTIFYING DATA: Dear Dr. Villagomez, The patient is a pleasant 66-year-old female with past medical history significant for worsening abdominal pain that has occurred over the past several weeks with vague abdominal symptoms, has not been seen by a medical doctor in the past and apparently this is the first time being admitted to [facility] with abdominal pain noted on the right-side upper quadrant. She has been febrile in addition to that. In the ER noted to have leukocytosis , ALEX, transaminitis, lactic acidosis. Bilirubin is significantly elevated. CAT scan demonstrated a biliary tree and mass on the anterior right side of the liver. Surgery called to evaluate and was seen at the bedside and recommended that the patient potentially to consider a GI evaluation, potentially with prolonged acute cholangitis, prior to admission. Hematology service consulted given significant thrombocytopenia. PAST MEDICAL HISTORY: As noted above with limited past medical history as the patient has not seen physicians and has not sought medical here. HOME MEDICATIONS: Reviewed, none noted. ALLERGIES: No known drug allergies. FAMILY HISTORY: Noncontributory. REVIEW OF SYSTEMS: CONSTITUTIONAL: Abdominal pain, fevers and chills noted. SKIN: No rashes, bumps, or itching. HEENT: No headache, hearing or vision changes. BREASTS: No lumps, pain, or discharge. PULMONARY: No cough, sputum, or shortness of breath. GASTROINTESTINAL: No nausea, vomiting, or diarrhea. GENITOURINARY: No dysuria. MUSCULOSKELETAL: No significant joint swelling or muscle pain at this moment. PHYSICAL EXAMINATION: GENERAL: In no acute distress. VITAL SIGNS: Reviewed. PULMONARY: Decreased breath sounds. CARDIOVASCULAR: Regular rate. No S3 or S4. ABDOMEN: Tender at the right upper quadrant. EXTREMITIES: 1+ edema. LABORATORY DATA: Tumor markers at this moment are pending. INR of 1, PTT of 34. Mixing study pending of 674. D-dimer of 2.63. Platelet count of 13,000, lymphocyte 12% and neutrophils 19. Serology: Hepatitis panel is pending. HIV is negative. HIT antibody is negative, likely given the patient has not received any treatment with heparin yet. Lactic acidosis improved, currently at 4.3. Iron of 59, percent saturation of 36, ferritin of 2000. Transaminitis noted. Bilirubin significant with mostly direct bilirubin noted. Albumin of 4.9, globulin of 26. IMAGING DATA: Duplex of the lower extremities is completed and is patent. Chest x-ray shows hyperventilatory exam. No acute process. Abdominopelvic CT scan shows 03:36 gas with grade 3 lesion noted in the right hepatic lobe. Alpha-fetoprotein is pending. A CT-guided biopsy actually has been canceled. ASSESSMENT AND RECOMMENDATIONS: 1. Hepatic mass noted potentially secondary to a walled-off abscess versus an actual mass, obtain the MRI first in addition to MRCP versus ERCP. 2. Thrombocytopenia, severe, currently 11,000. This is the first time this patient has had a platelet count checked. HIT is negative. Hepatitis panel is pending. HIV is negative as well. 3. Anemia, very mild, continue to monitor. 4. Coagulopathy, elevated prothrombin time and partial thromboplastin time. Mixing study is pending. 5. Acute kidney injury versus chronic kidney disease, unknown patient's baseline. Nephrology to follow. 6. Hyperbilirubinemia, mostly direct bilirubin, likely secondary to obstruction versus acute cholangitis. 7. Acute versus chronic cholangitis, has been seen by ID service, Surgical service, GI service, obtain MRCP versus ERCP. 8. Sepsis with pyuria noted with urinary tract infection. The patient does have severe sepsis due to cholangitis, continue to closely monitor the improvement on antibiotics. We appreciate the consultation. Adelso Sharma M.D. DR: CESILIA JOB#: [id number] CC:
[2017-07-22 09:10] LABS: ABG ALLEN TEST POSITIVE
--- NOTE | 2017-07-22 09:34 | Diagnostic Imaging Report ---
Indication: Abdominal pain Technique: Zimmerman-scale and duplex images of the upper abdomen were obtained Comparison: Abdomen pelvis CT earlier the same day Findings: Gallbladder demonstrates a large gallstone. There is gallbladder wall thickening, gallbladder wall measuring 6 mm thick low gallbladder is incompletely distended. Gallbladder wall thickening is not evident on CT, in retrospect. No pericholecystic fluid. Sonographic Cabrera's sign is negative. Common bile duct measures 5 mm in diameter. No intrahepatic biliary ductal dilatation. Liver demonstrates normal echogenicity. In the right hepatic lobe, there is a mass lesion which measures 8.7 x 5.4 x 5.7 cm. This is mostly isoechoic, with some hypoechoic areas. This does demonstrate some internal vascularity and color Doppler imaging. Bright echoes adjacent to the lesion presumably represent the suspected pneumobilia demonstrated on recent CT scan. Portal vein and hepatic veins are patent. Pancreas is unremarkable. Spleen is unremarkable. Left kidney measures 10.5 cm in length. Right kidney measures 10.8 cm length. Both kidneys demonstrate normal echogenicity. There is no hydronephrosis. No focal abnormality . Abdominal aorta is partially obscured by bowel gas, visualized portions are non-aneurysmal . There is a Smith catheter within the bladder, which is nondistended Impression: 8.7 x 5.4 x 5.7 cm right lobe liver mass, also described on recent CT scan. Main differential considerations remain neoplasm versus abscess. Presence of apparent internal vascularity favors the former Bright echoes within the liver, presumably representing intrahepatic gas demonstrated on recent CT scan. As previously discussed, most likely on the basis of pneumobilia particularly if there is history of endobiliary intervention, but infection with gas-forming organism remains a possibility Cholelithiasis. Apparent gallbladder wall thickening raises concern for acute cholecystitis, but could also be an artifact of under distention. Consider hepatobiliary nuclear scan if there is high clinical suspicion Note incomplete visualization of the abdominal aorta Smith catheter
--- NOTE | 2017-07-22 10:06 | Pulmonolgy Critical Care Note ---
Critical Care - Asmt/Plan Problems: (1) ARF (acute renal failure) (2) Septic shock (3) Acute cholangitis Respiratory: monitor respiratory rate, adjust FIO2, CXR, ABG Cardiac: continue pressors Renal: F/U I&O, keep IV fluid Infectious Disease: check cultures, continue antibiotics Gastrointestinal: hold feedings Endocrine: monitor blood sugar Hematologic: monitor H/H Neurologic: PRN Ativan, PRN Morphine Affect: PRN ativan Prophylaxis: Heparin Notes Reviewed: renal Discussed with: nurses, consultants, case managers, other - d/w with Dr. Medina, who will do US guided biopsy or drainage of the liver mass/abscess Critical Care - Objective Last 24 Hour Vital Signs Date Time Temp Pulse Resp B/P (MAP) Pulse Ox O2 Delivery O2 Flow Rate FiO2 07/22/17 09:15 40 07/22/17 09:15 87 23 105/42 98 Bi-pap 40 07/22/17 08:00 85 07/22/17 08:00 35 07/22/17 07:45 85 22 86/25 98 Bi-pap 35 07/22/17 07:39 125/31 07/22/17 07:30 86 21 125/31 97 Bi-pap 35 07/22/17 07:15 98.5 86 22 115/36 97 Bi-pap 35 07/22/17 07:00 86 23 102/31 97 Bi-pap 35 07/22/17 06:49 87 22 99 Full Face 35 07/22/17 06:48 Bi-pap 35 07/22/17 06:46 99 Bi-pap 35 07/22/17 06:45 90 23 95/27 98 Bi-pap 35 07/22/17 06:30 82 23 89/27 97 Bi-pap 35 07/22/17 06:15 83 23 96/27 98 Bi-pap 35 07/22/17 06:00 90 22 96/26 98 Bi-pap 35 07/22/17 05:45 87 22 99/24 98 Bi-pap 35 07/22/17 05:30 88 23 93/78 98 Bi-pap 35 07/22/17 05:20 88 24 97 Full Face 35 07/22/17 05:15 88 22 130/41 98 Bi-pap 35 07/22/17 05:00 90 22 93/78 98 Bi-pap 35 07/22/17 04:45 83 22 89/17 98 Bi-pap 50 07/22/17 04:30 86 22 86/22 98 Bi-pap 50 07/22/17 04:15 90 24 74/25 98 Bi-pap 50 07/22/17 04:00 90 07/22/17 04:00 98.9 88 24 90/27 100 Bi-pap 50 07/22/17 04:00 35 07/22/17 03:45 89 23 103/33 98 Bi-pap 50 07/22/17 03:30 87 23 98/36 98 Bi-pap 50 07/22/17 03:18 88 27 98 Full Face 50 07/22/17 03:15 89 23 84/27 98 Bi-pap 50 07/22/17 03:13 69/19 07/22/17 03:00 86 22 69/19 97 Bi-pap 50 07/22/17 02:27 97 07/22/17 02:00 86 21 72/21 97 Bi-pap 50 07/22/17 01:30 88 28 98 Full Face 50 07/22/17 01:00 87 21 80/22 99 Bi-pap 50 07/22/17 00:00 50 07/22/17 00:00 98.7 91 24 87/26 100 Bi-pap 50 07/22/17 00:00 79 07/21/17 23:30 85 23 99 Full Face 50 07/21/17 23:00 95 23 123/50 99 Bi-pap 50 07/21/17 22:00 78 23 136/46 99 Bi-pap 50 07/21/17 22:00 80 18 98 Full Face 50 07/21/17 21:00 79 21 98/65 97 Bi-pap 50 07/21/17 21:00 50 07/21/17 20:00 79 07/21/17 20:00 98.3 78 20 95/42 97 Bi-pap 50 07/21/17 19:39 50 07/21/17 19:30 77 19 98 Full Face 50 07/21/17 19:30 97 Bi-pap 07/21/17 19:30 Bi-pap 07/21/17 19:00 80 22 108/40 97 Bi-pap 50 07/21/17 18:00 83 22 103/55 97 Bi-pap 50 07/21/17 17:07 83 21 98 Full Face 50 07/21/17 17:00 83 24 83/47 96 Bi-pap 50 07/21/17 16:00 87 07/21/17 16:00 83 24 87/41 99 Bi-pap 70 07/21/17 15:36 98.9 84 24 77/35 99 Bi-pap 70 07/21/17 15:10 50 07/21/17 15:03 94 20 Bi-pap 70 07/21/17 15:00 94 20 98 Full Face 70 07/21/17 15:00 86 24 70/36 99 Bi-pap 70 07/21/17 14:30 70 07/21/17 14:00 99 28 98/47 90 Non-Rebreather 100 07/21/17 14:00 100 07/21/17 13:00 98 28 103/56 95 Non-Rebreather 100 07/21/17 12:21 93 Nasal Cannula 4.0 07/21/17 12:21 Nasal Cannula 4.0 07/21/17 12:00 98.5 104 24 156/94 85 Nasal Cannula 07/21/17 12:00 79 07/21/17 11:00 90 23 109/40 93 Nasal Cannula 3.0 Status: awake Condition: critical HEENT: atraumatic Lungs: clear Heart: HR/BP unstable, regular Abdomen: non-tender, active bowel sounds, feeding tube Extremities: no C/C/E Decubiti: stage Micro: Microbiology Date/Time Source Procedure Growth Status 07/21/17 05:00 Blood Blood Culture - Preliminary NO GROWTH AFTER 24 HOURS Resulted 07/21/17 04:45 Blood Blood Culture - Preliminary NO GROWTH AFTER 24 HOURS Resulted 07/21/17 06:20 Urine,Clean Catch Urine Culture - Preliminary Gram Negative Bacillus 1 Resulted Accucheck: 171 Critical Care - Subjective ROS Limited/Unobtainable: No ICU Day: 2 Interval Events: on bipap and levophed FI02: 40 Vent Support Mode: CPAP Sputum Amount: None Fluids: NS 150 cc/hour Drips: Levophed I&O: Intake and Output 07/22/17 07/23/17 19:00 07:00 Intake Total 172 ml Output Total 30 ml Balance 142 ml Intake IV Total 172 ml Output Urine Total 30 ml CXR: clear Labs: Laboratory Tests Test 07/21/17 11:15 07/21/17 14:35 07/21/17 16:05 07/22/17 04:00 Hemoglobin A Pending Hemoglobin A2 Pending Hemoglobin C Pending Hemoglobin F () Pending Hemoglobin S Pending Variant Hemoglobin Pending Hemoglobin Electrophoresis Interp Pending Hemoglobin Interpretation Pending Hemoglobin Solubility Pending PTT Mixing Study Pending APTT Patient/Control Mix Pending Mix PTT Incubation Time Pending Mix PTT Normal/Saline 1:1 Immediate Pending Thrombin Time Normal Plasma Pending Fibrinogen 674 mg/dL (200-400) H D-Dimer 2.63 mg/L FEU (0.00-0.49) H Lactic Acid Level 2.00 mmol/L (0.66-2.22) Alpha Fetoprotein Pending CA 15-3 Antigen Pending CA 125 Antigen Pending Homocystine Pending Heparin-PF4 Antibody Screen Pending Hepatitis A IgM Antibody Pending Hepatitis B Surface Antigen Pending Hepatitis B Core IgM Antibody Pending Hepatitis C Antibody Pending Arterial Blood pH 7.100 (7.350-7.450) 7.267 (7.350-7.450) Arterial Blood Partial Pressure CO2 41.5 mmHg (35.0-45.0) 26.4 mmHg (35.0-45.0) L Arterial Blood Partial Pressure O2 79.5 mmHg (75.0-100.0) 132.4 mmHg (75.0-100.0) H Arterial Blood HCO3 12.6 mmol/L (22.0-26.0) L 11.8 mmol/L (22.0-26.0) L Arterial Blood Oxygen Saturation 93.4 % (92.0-98.0) 98.1 % (92.0-98.0) H Arterial Blood Base Excess -16.4 -13.6 Tr Test Positive Positive Urine Color Pending Urine Appearance Pending Urine pH Pending Urine Specific [place] Pending Urine Protein Pending Urine Glucose (UA) Pending Urine Ketones Pending Urine Occult Blood Pending Urine Nitrite Pending Urine Bilirubin Pending Urine Urobilinogen Pending Urine Leukocyte Esterase Pending Urine RBC Pending Urine WBC Pending Urine Squamous Epithelial Cells Pending Urine Bacteria Pending Urine Eosinophils Pending Urine Potassium Timed 53 mmol/L (12-62) Test 07/22/17 04:30 07/22/17 08:55 White Blood Count 44.3 K/UL (4.8-10.8) *H Red Blood Count 3.52 M/UL (4.20-5.40) L Hemoglobin 10.1 G/DL (12.0-16.0) #L Hematocrit 29.9 % (37.0-47.0) #L Mean Corpuscular Volume 85 FL (80-99) Mean Corpuscular Hemoglobin 28.7 PG (27.0-31.0) Mean Corpuscular Hemoglobin Concent 33.8 G/DL (32.0-36.0) Red Cell Distribution Width 14.0 % (11.6-14.8) Platelet Count 15 K/UL (150-450) L Mean Platelet Volume 8.7 FL (6.5-10.1) Neutrophils (%) (Auto) % (45.0-75.0) Lymphocytes (%) (Auto) % (20.0-45.0) Monocytes (%) (Auto) % (1.0-10.0) Eosinophils (%) (Auto) % (0.0-3.0) Basophils (%) (Auto) % (0.0-2.0) Differential Total Cells Counted 100 Neutrophils % (Manual) 85 % (45-75) H Lymphocytes % (Manual) 5 % (20-45) L Monocytes % (Manual) 6 % (1-10) Eosinophils % (Manual) 0 % (0-3) Basophils % (Manual) 0 % (0-2) Band Neutrophils 4 % (0-8) Platelet Estimate Decreased L Platelet Morphology Normal Hypochromasia 1+ Prothrombin Time 11.4 SEC (9.30-11.50) Prothromb Time International Ratio 1.1 (0.9-1.1) Activated Partial Thromboplast Time 29 SEC (23-33) Sodium Level 134 MMOL/L (136-145) #L Potassium Level 3.6 MMOL/L (3.5-5.1) Chloride Level 101 MMOL/L (98-107) Carbon Dioxide Level 17 MMOL/L (21-32) L Anion Gap 16 mmol/L (5-15) H Blood Urea Nitrogen 106 mg/dL (7-18) H Creatinine 4.8 MG/DL (0.55-1.30) H Estimat Glomerular Filtration Rate 9.1 mL/min (>60) Glucose Level 81 MG/DL (74-106) # Lactic Acid Level 3.10 mmol/L (0.66-2.22) H Uric Acid 12.8 MG/DL (2.6-7.2) H Calcium Level 7.5 MG/DL (8.5-10.1) L Phosphorus Level 1.4 MG/DL (2.5-4.9) L Magnesium Level 2.3 MG/DL (1.8-2.4) Total Bilirubin 12.9 MG/DL (0.2-1.0) H Direct Bilirubin 11.1 MG/DL (0.0-0.3) H Gamma Glutamyl Transpeptidase 183 U/L (5-85) H Aspartate Amino Transf (AST/SGOT) 369 U/L (15-37) H Alanine Aminotransferase (ALT/SGPT) 185 U/L (12-78) H Alkaline Phosphatase 787 U/L (46-116) H Total Creatine Kinase 134 U/L (26-308) Troponin I 0.060 ng/mL (0.000-0.056) C-Reactive Protein, Quantitative 31.8 mg/dL (0.00-0.90) H Pro-B-Type Natriuretic Peptide 6805 pg/mL (0-125) H Total Protein 5.0 G/DL (6.4-8.2) L Albumin 1.6 G/DL (3.4-5.0) L Globulin 3.4 g/dL Albumin/Globulin Ratio 0.5 (1.0-2.7) L Lipase 359 U/L (73-393) Vitamin B12 Level 8565 PG/ML (193-986) H Arterial Blood pH 7.290 (7.350-7.450) Arterial Blood Partial Pressure CO2 28.0 mmHg (35.0-45.0) L Arterial Blood Partial Pressure O2 74.5 mmHg (75.0-100.0) L Arterial Blood HCO3 13.2 mmol/L (22.0-26.0) L Arterial Blood Oxygen Saturation 94.9 % (92.0-98.0) Arterial Blood Base Excess -12.0 Tr Test Positive RICK LEY Jul 22, 2017 10:06
--- NOTE | 2017-07-22 10:18 | Infectious Diseases Prog Note ---
Assessment/Plan Assessment/Plan Abx: IV Vancomycin 07/21- IV Zosyn 07/21 Meropenem 07/21- Levaquin x1 07/21 Assesment: Severe sepsis 2ry to cholangitis c/w GNR bacteremia- also ?UTI -CT abd/p wo: Masslike lesion in the right hepatic lobe, as described. This could represent abscess, neoplasm, or infarct. Recommend followup CT or MRI imaging with contrast if possible. Tubular gas at the periphery of the lesion. This could represent pneumobilia, but the fact that all of the gas appears related to the above lesion raises concern for infection with gas-forming organism. Mild hepatomegaly. Cholelithiasis. Diverticulosis. No evidence of diverticulitis. Considerable basilar bilateral pulmonary atelectatic changes -Bcx 07/21 11/26 GNR (id and sensi pending) Hyperleukocytosis/leukemoid reaction-2ry to above- persistent to slighlty worse Lactic acidosis- improving ALEX, improving Acute liver injury: cholestatic pattern>hepatotoxic -2ry to above- Tbili/direct bili worsening -acute hep serologies neg -HIV ag/ab neg Thrombocytopenia- profound- likely related to sepsis Pyuria, ?UTI -UCx >100 GNB (ID and sensi pending) Plan: -D/c IV Vancomycin #2 and continue IV meropenem #2 and add IV amikacin pending ID and sensi GNR -07/21 SP Zosyn, levaquin #1 -Repeat 2 sets of Bcx -For US guided drainage of mass/abscess- needs source control -f/u cultures -Monitor CBC/CMP, temperatures Thank your for this consultation. Will continue to follow along with you. Discussed with RN and pharmacy staff Subjective Allergies: Coded Allergies: No Known Allergies (Unverified , 07/21/17) Subjective afebrile slightly worse leukocytosis bacteremic and ucx with GNR for US guided drainage Objective Vital Signs Last 24 Hour Vital Signs Date Time Temp Pulse Resp B/P (MAP) Pulse Ox O2 Delivery O2 Flow Rate FiO2 07/22/17 10:10 84 20 97 Full Face 4.0 40 07/22/17 09:15 40 07/22/17 09:15 87 23 105/42 98 Bi-pap 40 07/22/17 08:00 85 07/22/17 08:00 35 07/22/17 07:45 85 22 86/25 98 Bi-pap 35 07/22/17 07:39 125/31 07/22/17 07:30 86 21 125/31 97 Bi-pap 35 07/22/17 07:15 98.5 86 22 115/36 97 Bi-pap 35 07/22/17 07:00 86 23 102/31 97 Bi-pap 35 07/22/17 06:49 87 22 99 Full Face 35 07/22/17 06:48 Bi-pap 35 07/22/17 06:46 99 Bi-pap 35 07/22/17 06:45 90 23 95/27 98 Bi-pap 35 07/22/17 06:30 82 23 89/27 97 Bi-pap 35 07/22/17 06:15 83 23 96/27 98 Bi-pap 35 07/22/17 06:00 90 22 96/26 98 Bi-pap 35 07/22/17 05:45 87 22 99/24 98 Bi-pap 35 07/22/17 05:30 88 23 93/78 98 Bi-pap 35 07/22/17 05:20 88 24 97 Full Face 35 07/22/17 05:15 88 22 130/41 98 Bi-pap 35 07/22/17 05:00 90 22 93/78 98 Bi-pap 35 07/22/17 04:45 83 22 89/17 98 Bi-pap 50 07/22/17 04:30 86 22 86/22 98 Bi-pap 50 07/22/17 04:15 90 24 74/25 98 Bi-pap 50 07/22/17 04:00 90 07/22/17 04:00 98.9 88 24 90/27 100 Bi-pap 50 07/22/17 04:00 35 07/22/17 03:45 89 23 103/33 98 Bi-pap 50 07/22/17 03:30 87 23 98/36 98 Bi-pap 50 07/22/17 03:18 88 27 98 Full Face 50 07/22/17 03:15 89 23 84/27 98 Bi-pap 50 07/22/17 03:13 69/19 07/22/17 03:00 86 22 69/19 97 Bi-pap 50 07/22/17 02:27 97 07/22/17 02:00 86 21 72/21 97 Bi-pap 50 07/22/17 01:30 88 28 98 Full Face 50 07/22/17 01:00 87 21 80/22 99 Bi-pap 50 07/22/17 00:00 50 07/22/17 00:00 98.7 91 24 87/26 100 Bi-pap 50 07/22/17 00:00 79 07/21/17 23:30 85 23 99 Full Face 50 07/21/17 23:00 95 23 123/50 99 Bi-pap 50 07/21/17 22:00 78 23 136/46 99 Bi-pap 50 07/21/17 22:00 80 18 98 Full Face 50 07/21/17 21:00 79 21 98/65 97 Bi-pap 50 07/21/17 21:00 50 07/21/17 20:00 79 07/21/17 20:00 98.3 78 20 95/42 97 Bi-pap 50 07/21/17 19:39 50 07/21/17 19:30 77 19 98 Full Face 50 07/21/17 19:30 97 Bi-pap 07/21/17 19:30 Bi-pap 07/21/17 19:00 80 22 108/40 97 Bi-pap 50 07/21/17 18:00 83 22 103/55 97 Bi-pap 50 07/21/17 17:07 83 21 98 Full Face 50 07/21/17 17:00 83 24 83/47 96 Bi-pap 50 07/21/17 16:00 87 07/21/17 16:00 83 24 87/41 99 Bi-pap 70 07/21/17 15:36 98.9 84 24 77/35 99 Bi-pap 70 07/21/17 15:10 50 07/21/17 15:03 94 20 Bi-pap 70 07/21/17 15:00 94 20 98 Full Face 70 07/21/17 15:00 86 24 70/36 99 Bi-pap 70 07/21/17 14:30 70 07/21/17 14:00 99 28 98/47 90 Non-Rebreather 100 07/21/17 14:00 100 07/21/17 13:00 98 28 103/56 95 Non-Rebreather 100 07/21/17 12:21 93 Nasal Cannula 4.0 07/21/17 12:21 Nasal Cannula 4.0 07/21/17 12:00 98.5 104 24 156/94 85 Nasal Cannula 07/21/17 12:00 79 07/21/17 11:00 90 23 109/40 93 Nasal Cannula 3.0 Height (Feet): 5 Height (Inches): 2.00 Weight (Pounds): 150 Objective Status: lethargic, bipap mask in place Condition: critical HEENT: atraumatic Neck: full ROM Lungs: clear, chest wall tender Heart: no murmurs Abdomen: soft, non-tender, active bowel sounds Extremities: no C/C/E, edema Microbiology Date/Time Source Procedure Growth Status 07/21/17 05:00 Blood Blood Culture - Preliminary Resulted 07/21/17 04:45 Blood Blood Culture - Preliminary Resulted 07/21/17 06:20 Urine,Clean Catch Urine Culture - Preliminary Gram Negative Bacillus 1 Resulted Laboratory Tests Test 07/21/17 11:15 07/21/17 14:35 07/21/17 16:05 07/22/17 04:00 Hemoglobin A Pending Hemoglobin A2 Pending Hemoglobin C Pending Hemoglobin F () Pending Hemoglobin S Pending Variant Hemoglobin Pending Hemoglobin Electrophoresis Interp Pending Hemoglobin Interpretation Pending Hemoglobin Solubility Pending PTT Mixing Study Pending APTT Patient/Control Mix Pending Mix PTT Incubation Time Pending Mix PTT Normal/Saline 1:1 Immediate Pending Thrombin Time Normal Plasma Pending Fibrinogen 674 mg/dL (200-400) H D-Dimer 2.63 mg/L FEU (0.00-0.49) H Lactic Acid Level 2.00 mmol/L (0.66-2.22) Alpha Fetoprotein Pending CA 15-3 Antigen Pending CA 125 Antigen Pending Homocystine Pending Heparin-PF4 Antibody Screen Pending Hepatitis A IgM Antibody Pending Hepatitis B Surface Antigen Pending Hepatitis B Core IgM Antibody Pending Hepatitis C Antibody Pending Arterial Blood pH 7.100 (7.350-7.450) 7.267 (7.350-7.450) Arterial Blood Partial Pressure CO2 41.5 mmHg (35.0-45.0) 26.4 mmHg (35.0-45.0) L Arterial Blood Partial Pressure O2 79.5 mmHg (75.0-100.0) 132.4 mmHg (75.0-100.0) H Arterial Blood HCO3 12.6 mmol/L (22.0-26.0) L 11.8 mmol/L (22.0-26.0) L Arterial Blood Oxygen Saturation 93.4 % (92.0-98.0) 98.1 % (92.0-98.0) H Arterial Blood Base Excess -16.4 -13.6 Tr Test Positive Positive Urine Color Pending Urine Appearance Pending Urine pH Pending Urine Specific [place] Pending Urine Protein Pending Urine Glucose (UA) Pending Urine Ketones Pending Urine Occult Blood Pending Urine Nitrite Pending Urine Bilirubin Pending Urine Urobilinogen Pending Urine Leukocyte Esterase Pending Urine RBC Pending Urine WBC Pending Urine Squamous Epithelial Cells Pending Urine Bacteria Pending Urine Eosinophils Pending Urine Potassium Timed 53 mmol/L (12-62) Test 07/22/17 04:30 07/22/17 08:55 White Blood Count 44.3 K/UL (4.8-10.8) *H Red Blood Count 3.52 M/UL (4.20-5.40) L Hemoglobin 10.1 G/DL (12.0-16.0) #L Hematocrit 29.9 % (37.0-47.0) #L Mean Corpuscular Volume 85 FL (80-99) Mean Corpuscular Hemoglobin 28.7 PG (27.0-31.0) Mean Corpuscular Hemoglobin Concent 33.8 G/DL (32.0-36.0) Red Cell Distribution Width 14.0 % (11.6-14.8) Platelet Count 15 K/UL (150-450) L Mean Platelet Volume 8.7 FL (6.5-10.1) Neutrophils (%) (Auto) % (45.0-75.0) Lymphocytes (%) (Auto) % (20.0-45.0) Monocytes (%) (Auto) % (1.0-10.0) Eosinophils (%) (Auto) % (0.0-3.0) Basophils (%) (Auto) % (0.0-2.0) Differential Total Cells Counted 100 Neutrophils % (Manual) 85 % (45-75) H Lymphocytes % (Manual) 5 % (20-45) L Monocytes % (Manual) 6 % (1-10) Eosinophils % (Manual) 0 % (0-3) Basophils % (Manual) 0 % (0-2) Band Neutrophils 4 % (0-8) Platelet Estimate Decreased L Platelet Morphology Normal Hypochromasia 1+ Prothrombin Time 11.4 SEC (9.30-11.50) Prothromb Time International Ratio 1.1 (0.9-1.1) Activated Partial Thromboplast Time 29 SEC (23-33) Sodium Level 134 MMOL/L (136-145) #L Potassium Level 3.6 MMOL/L (3.5-5.1) Chloride Level 101 MMOL/L (98-107) Carbon Dioxide Level 17 MMOL/L (21-32) L Anion Gap 16 mmol/L (5-15) H Blood Urea Nitrogen 106 mg/dL (7-18) H Creatinine 4.8 MG/DL (0.55-1.30) H Estimat Glomerular Filtration Rate 9.1 mL/min (>60) Glucose Level 81 MG/DL (74-106) # Lactic Acid Level 3.10 mmol/L (0.66-2.22) H Uric Acid 12.8 MG/DL (2.6-7.2) H Calcium Level 7.5 MG/DL (8.5-10.1) L Phosphorus Level 1.4 MG/DL (2.5-4.9) L Magnesium Level 2.3 MG/DL (1.8-2.4) Total Bilirubin 12.9 MG/DL (0.2-1.0) H Direct Bilirubin 11.1 MG/DL (0.0-0.3) H Gamma Glutamyl Transpeptidase 183 U/L (5-85) H Aspartate Amino Transf (AST/SGOT) 369 U/L (15-37) H Alanine Aminotransferase (ALT/SGPT) 185 U/L (12-78) H Alkaline Phosphatase 787 U/L (46-116) H Total Creatine Kinase 134 U/L (26-308) Troponin I 0.060 ng/mL (0.000-0.056) C-Reactive Protein, Quantitative 31.8 mg/dL (0.00-0.90) H Pro-B-Type Natriuretic Peptide 6805 pg/mL (0-125) H Total Protein 5.0 G/DL (6.4-8.2) L Albumin 1.6 G/DL (3.4-5.0) L Globulin 3.4 g/dL Albumin/Globulin Ratio 0.5 (1.0-2.7) L Lipase 359 U/L (73-393) Vitamin B12 Level 8565 PG/ML (193-986) H Arterial Blood pH 7.290 (7.350-7.450) Arterial Blood Partial Pressure CO2 28.0 mmHg (35.0-45.0) L Arterial Blood Partial Pressure O2 74.5 mmHg (75.0-100.0) L Arterial Blood HCO3 13.2 mmol/L (22.0-26.0) L Arterial Blood Oxygen Saturation 94.9 % (92.0-98.0) Arterial Blood Base Excess -12.0 Tr Test Positive Current Medications Medications (Trade) Dose Ordered Sig/Eleanor Route PRN Reason Start Time Stop Time Status Last Admin Dose Admin Acetaminophen (Tylenol) 500 mg Q8H PRN ORAL For Pain 07/21/17 09:45 08/20/17 09:44 Acetaminophen (Tylenol) 500 mg Q8H PRN ORAL Temp> 100.5 07/21/17 10:00 08/20/17 09:59 Dextrose (Dextrose 50%) STAT PRN IV Hypoglycemia 07/21/17 10:45 08/20/17 10:44 Diphenhydramine HCl (Benadryl) 12.5 mg Q6H PRN IVP Itching/Pruritis 07/21/17 10:45 08/20/17 10:44 Famotidine (Pepcid I.v.) 20 mg Q12HR IVP 07/21/17 21:00 08/20/17 20:59 07/22/17 08:56 Insulin Aspart (NovoLOG) EVERY 4 HOURS SUBQ 07/21/17 13:30 08/20/17 13:29 07/22/17 08:44 Meropenem 1 gm/ Sodium Chloride 55 ml @ 110 mls/hr Q24H IVPB 07/21/17 17:00 07/26/17 16:59 07/21/17 17:16 Morphine Sulfate (Morphine Sulfate) 1 mg Q4H PRN IVP pain scale 1-3 07/21/17 10:45 07/28/17 10:44 Norepinephrine Bitartrate 4 mg/ Dextrose 250 ml @ 0 mls/hr Q24H IV 07/22/17 03:00 08/21/17 02:59 07/22/17 07:39 Ondansetron HCl (Zofran) 4 mg Q6H PRN IVP Nausea & Vomiting 07/21/17 10:45 08/20/17 10:44 Sodium Chloride 1,000 ml @ 150 mls/hr Q6H40M IV 07/22/17 11:00 08/21/17 10:59 07/22/17 04:03 Sodium Chloride 1,000 ml @ 999 mls/hr Q1H1M PRN IV For SBP less than 100mmHg 07/21/17 09:45 08/20/17 09:44 07/22/17 02:05 Vancomycin HCl (Vanco rx to dose) 1 ea DAILY PRN MISC Per rx protocol 07/21/17 08:45 08/20/17 08:44 Nicolette Mathis M.D. Jul 22, 2017 10:18
[2017-07-22 10:20] LABS: CA 125 88.8 U/mL (0.0-38.1); CA15-3 39.6 U/mL (0.0-25.0); HOMOCYSTINE QUANT 28.9 umol/L (0.0-15.0)
[2017-07-22 10:25] LABS: APPEARANCE,URINE CLOUDY; KETONES,URINE NEGATIVE (NEGATIVE); LEUKOCYTE ESTERASE ,URINE 3+ (NEGATIVE); NITRITE,URINE NEGATIVE (NEGATIVE); PH,URINE 5 (4.5-8.0); PROTEIN,URINE 3+ (NEGATIVE); UROBILINOGEN,URINE 1 MG/DL (0.0-1.0)
[2017-07-22] MEDS ORDERED: Amikacin Rx to dose MISC PRN (10:30)
[2017-07-22 10:50] LABS: BACTERIA,URINE MODERATE /HPF; RBC,URINE TNTC /HPF (0 - 2); SQUAMOUS EPITHELIAL CELL,UR MANY /LPF (NONE/OCC); WBC,URINE TNTC /HPF (0 - 2)
[2017-07-22 10:51] LABS: AMORPHOUS SEDIMENT,UR MANY /LPF; ICTOTEST POSITIVE
--- NOTE | 2017-07-22 11:08 | Diagnostic Imaging Report ---
Indication: DYSPNEA Technique: One view of the chest Comparison: 07/21/2017 Findings: Inspiration is suboptimal. Band of atelectasis or scarring is again demonstrated in the left perihilar region. Compressive atelectatic changes are seen at the right lung base. The heart size is normal. No effusions. Findings are unchanged Impression: Unchanged, over one day, findings as above.
[2017-07-22] MEDS ORDERED: Amikacin 350 MG in NS 110 ML IV ONE (12:00)
--- NOTE | 2017-07-22 12:19 | General Surgery Progress Note ---
General Surgery-Progress Note Subjective Symptoms: worse Additional Comments patient seen and examined at bedside. hypotensive on pressors, respiratory decompensation on BIPAP. states she is okay and no pain. friends at bedside. leukocytosis worsening. t bili, LFT's worsening. plt 15 now. afebrile. Objective Last 24 Hour Vital Signs Date Time Temp Pulse Resp B/P (MAP) Pulse Ox O2 Delivery O2 Flow Rate FiO2 07/22/17 11:30 84 21 100/37 98 Bi-pap 40 07/22/17 11:28 84 21 98 Full Face 40 07/22/17 11:15 158/38 07/22/17 11:15 84 21 158/38 98 Bi-pap 40 07/22/17 11:00 84 21 124/32 98 Bi-pap 40 07/22/17 11:00 124/32 07/22/17 10:10 84 20 97 Full Face 4.0 40 07/22/17 09:15 40 07/22/17 09:15 87 23 105/42 98 Bi-pap 40 07/22/17 08:00 85 07/22/17 08:00 35 07/22/17 07:45 85 22 86/25 98 Bi-pap 35 07/22/17 07:39 125/31 07/22/17 07:30 86 21 125/31 97 Bi-pap 35 07/22/17 07:15 98.5 86 22 115/36 97 Bi-pap 35 07/22/17 07:00 86 23 102/31 97 Bi-pap 35 07/22/17 06:49 87 22 99 Full Face 35 07/22/17 06:48 Bi-pap 35 07/22/17 06:46 99 Bi-pap 35 07/22/17 06:45 90 23 95/27 98 Bi-pap 35 07/22/17 06:30 82 23 89/27 97 Bi-pap 35 07/22/17 06:15 83 23 96/27 98 Bi-pap 35 07/22/17 06:00 90 22 96/26 98 Bi-pap 35 07/22/17 05:45 87 22 99/24 98 Bi-pap 35 07/22/17 05:30 88 23 93/78 98 Bi-pap 35 07/22/17 05:20 88 24 97 Full Face 35 07/22/17 05:15 88 22 130/41 98 Bi-pap 35 07/22/17 05:00 90 22 93/78 98 Bi-pap 35 07/22/17 04:45 83 22 89/17 98 Bi-pap 50 07/22/17 04:30 86 22 86/22 98 Bi-pap 50 07/22/17 04:15 90 24 74/25 98 Bi-pap 50 07/22/17 04:00 90 07/22/17 04:00 98.9 88 24 90/27 100 Bi-pap 50 07/22/17 04:00 35 07/22/17 03:45 89 23 103/33 98 Bi-pap 50 07/22/17 03:30 87 23 98/36 98 Bi-pap 50 07/22/17 03:18 88 27 98 Full Face 50 07/22/17 03:15 89 23 84/27 98 Bi-pap 50 07/22/17 03:13 69/19 07/22/17 03:00 86 22 69/19 97 Bi-pap 50 07/22/17 02:27 97 07/22/17 02:00 86 21 72/21 97 Bi-pap 50 07/22/17 01:30 88 28 98 Full Face 50 07/22/17 01:00 87 21 80/22 99 Bi-pap 50 07/22/17 00:00 50 07/22/17 00:00 98.7 91 24 87/26 100 Bi-pap 50 07/22/17 00:00 79 07/21/17 23:30 85 23 99 Full Face 50 07/21/17 23:00 95 23 123/50 99 Bi-pap 50 07/21/17 22:00 78 23 136/46 99 Bi-pap 50 07/21/17 22:00 80 18 98 Full Face 50 07/21/17 21:00 79 21 98/65 97 Bi-pap 50 07/21/17 21:00 50 07/21/17 20:00 79 07/21/17 20:00 98.3 78 20 95/42 97 Bi-pap 50 07/21/17 19:39 50 07/21/17 19:30 77 19 98 Full Face 50 07/21/17 19:30 97 Bi-pap 07/21/17 19:30 Bi-pap 07/21/17 19:00 80 22 108/40 97 Bi-pap 50 07/21/17 18:00 83 22 103/55 97 Bi-pap 50 07/21/17 17:07 83 21 98 Full Face 50 07/21/17 17:00 83 24 83/47 96 Bi-pap 50 07/21/17 16:00 87 07/21/17 16:00 83 24 87/41 99 Bi-pap 70 07/21/17 15:36 98.9 84 24 77/35 99 Bi-pap 70 07/21/17 15:10 50 07/21/17 15:03 94 20 Bi-pap 70 07/21/17 15:00 94 20 98 Full Face 70 07/21/17 15:00 86 24 70/36 99 Bi-pap 70 07/21/17 14:30 70 07/21/17 14:00 99 28 98/47 90 Non-Rebreather 100 07/21/17 14:00 100 07/21/17 13:00 98 28 103/56 95 Non-Rebreather 100 07/21/17 12:21 93 Nasal Cannula 4.0 07/21/17 12:21 Nasal Cannula 4.0 I&O Intake and Output 07/22/17 07/23/17 19:00 07:00 Intake Total 667.5 ml Output Total 45 ml Balance 622.5 ml Intake IV Total 667.5 ml Output Urine Total 45 ml Cardiovascular: RSR Respiratory: decreased breath sounds Abdomen: soft, non-tender, present bowel sounds Extremities: edema Laboratory Tests Test 07/21/17 14:35 07/21/17 16:05 07/22/17 04:00 07/22/17 04:30 Arterial Blood pH 7.100 (7.350-7.450) 7.267 (7.350-7.450) Arterial Blood Partial Pressure CO2 41.5 mmHg (35.0-45.0) 26.4 mmHg (35.0-45.0) L Arterial Blood Partial Pressure O2 79.5 mmHg (75.0-100.0) 132.4 mmHg (75.0-100.0) H Arterial Blood HCO3 12.6 mmol/L (22.0-26.0) L 11.8 mmol/L (22.0-26.0) L Arterial Blood Oxygen Saturation 93.4 % (92.0-98.0) 98.1 % (92.0-98.0) H Arterial Blood Base Excess -16.4 -13.6 Tr Test Positive Positive Urine Color Brown Urine Appearance Cloudy Urine pH 5 (4.5-8.0) Urine Specific [place] 1.015 (1.005-1.035) Urine Protein 3+ (NEGATIVE) H Urine Glucose (UA) 1+ (NEGATIVE) H Urine Ketones Negative (NEGATIVE) Urine Occult Blood 5+ (NEGATIVE) H Urine Nitrite Negative (NEGATIVE) Urine Bilirubin 2+ (NEGATIVE) H Urine Ictotest Positive Urine Urobilinogen 1 MG/DL (0.0-1.0) H Urine Leukocyte Esterase 3+ (NEGATIVE) H Urine RBC Tntc /HPF (0 - 2) H Urine WBC Tntc /HPF (0 - 2) H Urine Squamous Epithelial Cells Many /LPF (NONE/OCC) H Urine Amorphous Sediment Many /LPF (NONE) H Urine Bacteria Moderate /HPF (NONE) H Urine Eosinophils None seen Urine Potassium Timed 53 mmol/L (12-62) White Blood Count 44.3 K/UL (4.8-10.8) *H Red Blood Count 3.52 M/UL (4.20-5.40) L Hemoglobin 10.1 G/DL (12.0-16.0) #L Hematocrit 29.9 % (37.0-47.0) #L Mean Corpuscular Volume 85 FL (80-99) Mean Corpuscular Hemoglobin 28.7 PG (27.0-31.0) Mean Corpuscular Hemoglobin Concent 33.8 G/DL (32.0-36.0) Red Cell Distribution Width 14.0 % (11.6-14.8) Platelet Count 15 K/UL (150-450) L Mean Platelet Volume 8.7 FL (6.5-10.1) Neutrophils (%) (Auto) % (45.0-75.0) Lymphocytes (%) (Auto) % (20.0-45.0) Monocytes (%) (Auto) % (1.0-10.0) Eosinophils (%) (Auto) % (0.0-3.0) Basophils (%) (Auto) % (0.0-2.0) Differential Total Cells Counted 100 Neutrophils % (Manual) 85 % (45-75) H Lymphocytes % (Manual) 5 % (20-45) L Monocytes % (Manual) 6 % (1-10) Eosinophils % (Manual) 0 % (0-3) Basophils % (Manual) 0 % (0-2) Band Neutrophils 4 % (0-8) Platelet Estimate Decreased L Platelet Morphology Normal Hypochromasia 1+ Prothrombin Time 11.4 SEC (9.30-11.50) Prothromb Time International Ratio 1.1 (0.9-1.1) Activated Partial Thromboplast Time 29 SEC (23-33) Sodium Level 134 MMOL/L (136-145) #L Potassium Level 3.6 MMOL/L (3.5-5.1) Chloride Level 101 MMOL/L (98-107) Carbon Dioxide Level 17 MMOL/L (21-32) L Anion Gap 16 mmol/L (5-15) H Blood Urea Nitrogen 106 mg/dL (7-18) H Creatinine 4.8 MG/DL (0.55-1.30) H Estimat Glomerular Filtration Rate 9.1 mL/min (>60) Glucose Level 81 MG/DL (74-106) # Lactic Acid Level 3.10 mmol/L (0.66-2.22) H Uric Acid 12.8 MG/DL (2.6-7.2) H Calcium Level 7.5 MG/DL (8.5-10.1) L Phosphorus Level 1.4 MG/DL (2.5-4.9) L Magnesium Level 2.3 MG/DL (1.8-2.4) Total Bilirubin 12.9 MG/DL (0.2-1.0) H Direct Bilirubin 11.1 MG/DL (0.0-0.3) H Gamma Glutamyl Transpeptidase 183 U/L (5-85) H Aspartate Amino Transf (AST/SGOT) 369 U/L (15-37) H Alanine Aminotransferase (ALT/SGPT) 185 U/L (12-78) H Alkaline Phosphatase 787 U/L (46-116) H Total Creatine Kinase 134 U/L (26-308) Troponin I 0.060 ng/mL (0.000-0.056) C-Reactive Protein, Quantitative 31.8 mg/dL (0.00-0.90) H Pro-B-Type Natriuretic Peptide 6805 pg/mL (0-125) H Total Protein 5.0 G/DL (6.4-8.2) L Albumin 1.6 G/DL (3.4-5.0) L Globulin 3.4 g/dL Albumin/Globulin Ratio 0.5 (1.0-2.7) L Lipase 359 U/L (73-393) Vitamin B12 Level 8565 PG/ML (193-986) H Test 07/22/17 08:55 07/22/17 11:35 Arterial Blood pH 7.290 (7.350-7.450) Arterial Blood Partial Pressure CO2 28.0 mmHg (35.0-45.0) L Arterial Blood Partial Pressure O2 74.5 mmHg (75.0-100.0) L Arterial Blood HCO3 13.2 mmol/L (22.0-26.0) L Arterial Blood Oxygen Saturation 94.9 % (92.0-98.0) Arterial Blood Base Excess -12.0 Tr Test Positive Lactic Acid Level Pending Plan Problems: (1) Cholelithiasis with acute cholangitis Assessment & Plan: 66 year old female with likely acute cholangitis. Afebrile , on pressors, leukocytosis worsening. Cr mildly improved, BUN elevated. LFT' s worsening. Patient is very sick with prolonged acute cholangitis prior to admission. Initially responding to fluids and Abx but currently decompensated again. CT scan limited given lack of contrast. cannot give contrast at this time given renal insufficiency. no definitive abscess seen but large area concerning for infectious process vs tumor? Ultrasound completed and pending final read. Severe sepsis with multiorgan failure. Currently unstable on pressors. DIC with plt 15. Unfortunately any invasive procedure / surgery would be very VERY High risk in her current state. -NPO -IV fluid resuscitation -IV Abx -Supportive measures -continue to trend labs -prognosis poor. -will follow with you. thank you for allowing me to participate in this patients care. Tai Baum Jul 22, 2017 12:19
--- NOTE | 2017-07-22 12:27 | Diagnostic Imaging Report ---
APPROVED REPORT CPT Code: 27878 Present Symptoms Shortness of breath BILATERAL: Imaging reveals a patent deep venous system bilaterally. There is no evidence of thrombus within the femoral, popliteal or tibial segments. The greater saphenous veins are also within normal limits. Doppler indicates normal spontaneous flow within these segments.
[2017-07-22] MEDS ORDERED: Meropenem 2 GM in NS 110 ML IVPB SCH (13:00)
--- NOTE | 2017-07-22 13:34 | Nephrology Progress Note ---
Assessment/Plan Assessment (1) ARF (acute renal failure) (2) Septic shock (3) Acute cholangitis (4) DM OOC (5) High Lipids (6) Liver mass Plan Plan: Phos supplement Hydrate- NPO Antibiotics- Monitor renal parameters Kidney KEI 8.7 x 5.4 x 5.7 cm right lobe liver mass, also described on recent CT scan. 2D echo pending avoid nephrotoxics per GI and surgery Subjective ROS Limited/Unobtainable: No Constitutional: Reports: malaise, weakness, other - on bipap Objective Objective Last 24 Hour Vital Signs Date Time Temp Pulse Resp B/P (MAP) Pulse Ox O2 Delivery O2 Flow Rate FiO2 07/22/17 13:18 77 21 98 Facial 40 07/22/17 12:30 81 20 121/45 98 Bi-pap 40 07/22/17 12:15 84 21 113/42 98 Bi-pap 40 07/22/17 12:00 98.4 81 20 98/53 99 Bi-pap 40 07/22/17 12:00 81 07/22/17 11:45 84 21 103/40 98 Bi-pap 40 07/22/17 11:30 84 21 100/37 98 Bi-pap 40 07/22/17 11:28 84 21 98 Full Face 40 07/22/17 11:15 158/38 07/22/17 11:15 84 21 158/38 98 Bi-pap 40 07/22/17 11:00 84 21 124/32 98 Bi-pap 40 07/22/17 11:00 124/32 07/22/17 10:10 84 20 97 Full Face 4.0 40 07/22/17 09:15 40 07/22/17 09:15 87 23 105/42 98 Bi-pap 40 07/22/17 09:00 88 22 95/30 98 Bi-pap 35 07/22/17 08:45 85 22 109/31 98 Bi-pap 35 07/22/17 08:30 86 22 96/25 98 Bi-pap 35 07/22/17 08:15 84 22 100/30 98 Bi-pap 35 07/22/17 08:00 85 07/22/17 08:00 35 07/22/17 08:00 85 22 102/27 98 Bi-pap 35 07/22/17 07:45 85 22 86/25 98 Bi-pap 35 07/22/17 07:39 125/31 07/22/17 07:30 86 21 125/31 97 Bi-pap 35 07/22/17 07:15 98.5 86 22 115/36 97 Bi-pap 35 07/22/17 07:00 86 23 102/31 97 Bi-pap 35 07/22/17 06:49 87 22 99 Full Face 35 07/22/17 06:48 Bi-pap 35 07/22/17 06:46 99 Bi-pap 35 07/22/17 06:45 90 23 95/27 98 Bi-pap 35 07/22/17 06:30 82 23 89/27 97 Bi-pap 35 07/22/17 06:15 83 23 96/27 98 Bi-pap 35 07/22/17 06:00 90 22 96/26 98 Bi-pap 35 07/22/17 05:45 87 22 99/24 98 Bi-pap 35 07/22/17 05:30 88 23 93/78 98 Bi-pap 35 07/22/17 05:20 88 24 97 Full Face 35 07/22/17 05:15 88 22 130/41 98 Bi-pap 35 07/22/17 05:00 90 22 93/78 98 Bi-pap 35 07/22/17 04:45 83 22 89/17 98 Bi-pap 50 07/22/17 04:30 86 22 86/22 98 Bi-pap 50 07/22/17 04:15 90 24 74/25 98 Bi-pap 50 07/22/17 04:00 90 07/22/17 04:00 98.9 88 24 90/27 100 Bi-pap 50 07/22/17 04:00 35 07/22/17 03:45 89 23 103/33 98 Bi-pap 50 07/22/17 03:30 87 23 98/36 98 Bi-pap 50 07/22/17 03:18 88 27 98 Full Face 50 07/22/17 03:15 89 23 84/27 98 Bi-pap 50 07/22/17 03:13 69/19 07/22/17 03:00 86 22 69/19 97 Bi-pap 50 07/22/17 02:27 97 07/22/17 02:00 86 21 72/21 97 Bi-pap 50 07/22/17 01:30 88 28 98 Full Face 50 07/22/17 01:00 87 21 80/22 99 Bi-pap 50 07/22/17 00:00 50 07/22/17 00:00 98.7 91 24 87/26 100 Bi-pap 50 07/22/17 00:00 79 07/21/17 23:30 85 23 99 Full Face 50 07/21/17 23:00 95 23 123/50 99 Bi-pap 50 07/21/17 22:00 78 23 136/46 99 Bi-pap 50 07/21/17 22:00 80 18 98 Full Face 50 07/21/17 21:00 79 21 98/65 97 Bi-pap 50 07/21/17 21:00 50 07/21/17 20:00 79 07/21/17 20:00 98.3 78 20 95/42 97 Bi-pap 50 07/21/17 19:39 50 07/21/17 19:30 77 19 98 Full Face 50 07/21/17 19:30 97 Bi-pap 07/21/17 19:30 Bi-pap 07/21/17 19:00 80 22 108/40 97 Bi-pap 50 07/21/17 18:00 83 22 103/55 97 Bi-pap 50 07/21/17 17:07 83 21 98 Full Face 50 07/21/17 17:00 83 24 83/47 96 Bi-pap 50 07/21/17 16:00 87 07/21/17 16:00 83 24 87/41 99 Bi-pap 70 07/21/17 15:36 98.9 84 24 77/35 99 Bi-pap 70 07/21/17 15:10 50 07/21/17 15:03 94 20 Bi-pap 70 07/21/17 15:00 94 20 98 Full Face 70 07/21/17 15:00 86 24 70/36 99 Bi-pap 70 07/21/17 14:30 70 07/21/17 14:00 99 28 98/47 90 Non-Rebreather 100 07/21/17 14:00 100 Intake and Output 07/22/17 07/23/17 19:00 07:00 Intake Total 1105.1 ml Output Total 80 ml Balance 1025.1 ml Intake IV Total 1105.1 ml Output Urine Total 80 ml Laboratory Tests 07/21/17 14:35: Arterial Blood pH 7.100*L, Arterial Blood Partial Pressure CO2 41.5, Arterial Blood Partial Pressure O2 79.5, Arterial Blood HCO3 12.6L, Arterial Blood Oxygen Saturation 93.4, Arterial Blood Base Excess -16.4, Tr Test Positive 07/21/17 16:05: Arterial Blood pH 7.267L, Arterial Blood Partial Pressure CO2 26.4L, Arterial Blood Partial Pressure O2 132.4H, Arterial Blood HCO3 11.8L, Arterial Blood Oxygen Saturation 98.1H, Arterial Blood Base Excess -13.6, Tr Test Positive 07/22/17 04:00: Urine Color Brown, Urine Appearance Cloudy, Urine pH 5, Urine Specific [place] 1.015, Urine Protein 3+H, Urine Glucose (UA) 1+H, Urine Ketones Negative, Urine Occult Blood 5+H, Urine Nitrite Negative, Urine Bilirubin 2+H, Urine Ictotest Positive, Urine Urobilinogen 1H, Urine Leukocyte Esterase 3+H, Urine RBC TntcH, Urine WBC TntcH, Urine Squamous Epithelial Cells ManyH, Urine Amorphous Sediment ManyH, Urine Bacteria ModerateH, Urine Eosinophils None seen, Urine Potassium Timed 53 07/22/17 04:30: White Blood Count 44.3*H, Red Blood Count 3.52L, Hemoglobin 10.1#L, Hematocrit 29.9#L, Mean Corpuscular Volume 85, Mean Corpuscular Hemoglobin 28.7, Mean Corpuscular Hemoglobin Concent 33.8, Red Cell Distribution Width 14.0, Platelet Count 15L, Mean Platelet Volume 8.7, Neutrophils (%) (Auto) , Lymphocytes (%) ( Auto) , Monocytes (%) (Auto) , Eosinophils (%) (Auto) , Basophils (%) (Auto) , Differential Total Cells Counted 100, Neutrophils % (Manual) 85H, Lymphocytes % (Manual) 5L, Monocytes % (Manual) 6, Eosinophils % (Manual) 0, Basophils % ( Manual) 0, Band Neutrophils 4, Platelet Estimate DecreasedL, Platelet Morphology Normal, Hypochromasia 1+, Prothrombin Time 11.4, Prothromb Time International Ratio 1.1, Activated Partial Thromboplast Time 29, Sodium Level 134#L, Potassium Level 3.6, Chloride Level 101, Carbon Dioxide Level 17L, Anion Gap 16H, Blood Urea Nitrogen 106H, Creatinine 4.8H, Estimat Glomerular Filtration Rate 9.1, Glucose Level 81#, Lactic Acid Level 3.10H, Uric Acid 12.8H , Calcium Level 7.5L, Phosphorus Level 1.4L, Magnesium Level 2.3, Total Bilirubin 12.9H, Direct Bilirubin 11.1H, Gamma Glutamyl Transpeptidase 183H, Aspartate Amino Transf (AST/SGOT) 369H, Alanine Aminotransferase (ALT/SGPT) 185H , Alkaline Phosphatase 787H, Total Creatine Kinase 134, Troponin I 0.060H, C- Reactive Protein, Quantitative 31.8H, Pro-B-Type Natriuretic Peptide 6805H, Total Protein 5.0L, Albumin 1.6L, Globulin 3.4, Albumin/Globulin Ratio 0.5L, Lipase 359, Vitamin B12 Level 8565H 07/22/17 08:55: Arterial Blood pH 7.290L, Arterial Blood Partial Pressure CO2 28.0L, Arterial Blood Partial Pressure O2 74.5L, Arterial Blood HCO3 13.2L, Arterial Blood Oxygen Saturation 94.9, Arterial Blood Base Excess -12.0, Tr Test Positive 07/22/17 11:35: Lactic Acid Level 2.10 Height (Feet): 5 Height (Inches): 2.00 Weight (Pounds): 150 General Appearance: mild distress, other - on BIPAP Cardiovascular: bradycardia Respiratory/Chest: decreased breath sounds Abdomen: distended GIANCARLO ALBERT Jul 22, 2017 13:34
--- NOTE | 2017-07-22 13:51 | GI Progress Note ---
Assessment/Plan Problems: (1) Diabetes mellitus, new onset ICD Codes: E11.9 - Type 2 diabetes mellitus without complications SNOMED: 477833686, 16453947 (2) Peritonitis (acute) generalized ICD Codes: K65.0 - Generalized (acute) peritonitis SNOMED: 62650003 (3) Acute cholangitis ICD Codes: K83.0 - Cholangitis SNOMED: 4752862, 99533061 (4) Septic shock ICD Codes: A41.9 - Sepsis, unspecified organism; R65.21 - Severe sepsis with septic shock SNOMED: 47477535 (5) Cholelithiasis with acute cholangitis ICD Codes: K80.20 - Calculus of gallbladder without cholecystitis without obstruction; K83.0 - Cholangitis SNOMED: 7910103, 798765963 (6) Thrombocytopenia ICD Codes: D69.6 - Thrombocytopenia, unspecified SNOMED: 530276530 Status: not improved Status Narrative Discussed with Dr. Carroll. Assessment/Plan CT AP reviewed >> likely with acute cholangitis. abdominal US reviewed, see full report. - CBD 5mm - 8.7 x 5.4 x 5.7 cm right lobe liver mass, also described on recent CT scan. Main differential considerations remain neoplasm versus abscess elevated triglycerides - Bright echoes within the liver, presumably representing intrahepatic gas. hep panel >> negative Hold MRCP/ERCP at this time given no definite CBD dilation or obstruction despite elevated T. bilirubin. >> pt unstable fu surgical recs fu US biopsy liver mass NPO + IVFs IV antibiotics follow LFTs DM mgmt H2B fu labs, AFP Subjective Subjective limited Objective Last 24 Hour Vital Signs Date Time Temp Pulse Resp B/P (MAP) Pulse Ox O2 Delivery O2 Flow Rate FiO2 07/22/17 13:18 77 21 98 Facial 40 07/22/17 12:30 81 20 121/45 98 Bi-pap 40 07/22/17 12:15 84 21 113/42 98 Bi-pap 40 07/22/17 12:00 98.4 81 20 98/53 99 Bi-pap 40 07/22/17 12:00 81 07/22/17 11:45 84 21 103/40 98 Bi-pap 40 07/22/17 11:30 84 21 100/37 98 Bi-pap 40 07/22/17 11:28 84 21 98 Full Face 40 07/22/17 11:15 158/38 11/28/17 11:15 84 21 158/38 98 Bi-pap 40 07/22/17 11:00 84 21 124/32 98 Bi-pap 40 07/22/17 11:00 124/32 07/22/17 10:10 84 20 97 Full Face 4.0 40 07/22/17 09:15 40 07/22/17 09:15 87 23 105/42 98 Bi-pap 40 07/22/17 09:00 88 22 95/30 98 Bi-pap 35 07/22/17 08:45 85 22 109/31 98 Bi-pap 35 07/22/17 08:30 86 22 96/25 98 Bi-pap 35 07/22/17 08:15 84 22 100/30 98 Bi-pap 35 07/22/17 08:00 85 07/22/17 08:00 35 07/22/17 08:00 85 22 102/27 98 Bi-pap 35 07/22/17 07:45 85 22 86/25 98 Bi-pap 35 07/22/17 07:39 125/31 07/22/17 07:30 86 21 125/31 97 Bi-pap 35 07/22/17 07:15 98.5 86 22 115/36 97 Bi-pap 35 07/22/17 07:00 86 23 102/31 97 Bi-pap 35 07/22/17 06:49 87 22 99 Full Face 35 07/22/17 06:48 Bi-pap 35 07/22/17 06:46 99 Bi-pap 35 07/22/17 06:45 90 23 95/27 98 Bi-pap 35 07/22/17 06:30 82 23 89/27 97 Bi-pap 35 07/22/17 06:15 83 23 96/27 98 Bi-pap 35 07/22/17 06:00 90 22 96/26 98 Bi-pap 35 07/22/17 05:45 87 22 99/24 98 Bi-pap 35 07/22/17 05:30 88 23 93/78 98 Bi-pap 35 07/22/17 05:20 88 24 97 Full Face 35 07/22/17 05:15 88 22 130/41 98 Bi-pap 35 07/22/17 05:00 90 22 93/78 98 Bi-pap 35 07/22/17 04:45 83 22 89/17 98 Bi-pap 50 11/28/17 04:30 86 22 86/22 98 Bi-pap 50 07/22/17 04:15 90 24 74/25 98 Bi-pap 50 07/22/17 04:00 90 07/22/17 04:00 98.9 88 24 90/27 100 Bi-pap 50 07/22/17 04:00 35 07/22/17 03:45 89 23 103/33 98 Bi-pap 50 07/22/17 03:30 87 23 98/36 98 Bi-pap 50 07/22/17 03:18 88 27 98 Full Face 50 07/22/17 03:15 89 23 84/27 98 Bi-pap 50 07/22/17 03:13 69/19 07/22/17 03:00 86 22 69/19 97 Bi-pap 50 07/22/17 02:27 97 07/22/17 02:00 86 21 72/21 97 Bi-pap 50 07/22/17 01:30 88 28 98 Full Face 50 07/22/17 01:00 87 21 80/22 99 Bi-pap 50 07/22/17 00:00 50 07/22/17 00:00 98.7 91 24 87/26 100 Bi-pap 50 07/22/17 00:00 79 07/21/17 23:30 85 23 99 Full Face 50 07/21/17 23:00 95 23 123/50 99 Bi-pap 50 07/21/17 22:00 78 23 136/46 99 Bi-pap 50 07/21/17 22:00 80 18 98 Full Face 50 07/21/17 21:00 79 21 98/65 97 Bi-pap 50 07/21/17 21:00 50 07/21/17 20:00 79 07/21/17 20:00 98.3 78 20 95/42 97 Bi-pap 50 07/21/17 19:39 50 07/21/17 19:30 77 19 98 Full Face 50 07/21/17 19:30 97 Bi-pap 07/21/17 19:30 Bi-pap 07/21/17 19:00 80 22 108/40 97 Bi-pap 50 07/21/17 18:00 83 22 103/55 97 Bi-pap 50 07/21/17 17:07 83 21 98 Full Face 50 11/27/17 17:00 83 24 83/47 96 Bi-pap 50 07/21/17 16:00 87 07/21/17 16:00 83 24 87/41 99 Bi-pap 70 07/21/17 15:36 98.9 84 24 77/35 99 Bi-pap 70 07/21/17 15:10 50 07/21/17 15:03 94 20 Bi-pap 70 07/21/17 15:00 94 20 98 Full Face 70 07/21/17 15:00 86 24 70/36 99 Bi-pap 70 07/21/17 14:30 70 07/21/17 14:00 99 28 98/47 90 Non-Rebreather 100 07/21/17 14:00 100 Intake and Output 07/22/17 07/23/17 19:00 07:00 Intake Total 1105.1 ml Output Total 80 ml Balance 1025.1 ml Intake IV Total 1105.1 ml Output Urine Total 80 ml Laboratory Tests Test 07/21/17 14:35 07/21/17 16:05 07/22/17 04:00 07/22/17 04:30 Arterial Blood pH 7.100 (7.350-7.450) 7.267 (7.350-7.450) Arterial Blood Partial Pressure CO2 41.5 mmHg (35.0-45.0) 26.4 mmHg (35.0-45.0) L Arterial Blood Partial Pressure O2 79.5 mmHg (75.0-100.0) 132.4 mmHg (75.0-100.0) H Arterial Blood HCO3 12.6 mmol/L (22.0-26.0) L 11.8 mmol/L (22.0-26.0) L Arterial Blood Oxygen Saturation 93.4 % (92.0-98.0) 98.1 % (92.0-98.0) H Arterial Blood Base Excess -16.4 -13.6 Tr Test Positive Positive Urine Color Brown Urine Appearance Cloudy Urine pH 5 (4.5-8.0) Urine Specific [place] 1.015 (1.005-1.035) Urine Protein 3+ (NEGATIVE) H Urine Glucose (UA) 1+ (NEGATIVE) H Urine Ketones Negative (NEGATIVE) Urine Occult Blood 5+ (NEGATIVE) H Urine Nitrite Negative (NEGATIVE) Urine Bilirubin 2+ (NEGATIVE) H Urine Ictotest Positive Urine Urobilinogen 1 MG/DL (0.0-1.0) H Urine Leukocyte Esterase 3+ (NEGATIVE) H Urine RBC Tntc /HPF (0 - 2) H Urine WBC Tntc /HPF (0 - 2) H Urine Squamous Epithelial Cells Many /LPF (NONE/OCC) H Urine Amorphous Sediment Many /LPF (NONE) H Urine Bacteria Moderate /HPF (NONE) H Urine Eosinophils None seen Urine Potassium Timed 53 mmol/L (12-62) White Blood Count 44.3 K/UL (4.8-10.8) *H Red Blood Count 3.52 M/UL (4.20-5.40) L Hemoglobin 10.1 G/DL (12.0-16.0) #L Hematocrit 29.9 % (37.0-47.0) #L Mean Corpuscular Volume 85 FL (80-99) Mean Corpuscular Hemoglobin 28.7 PG (27.0-31.0) Mean Corpuscular Hemoglobin Concent 33.8 G/DL (32.0-36.0) Red Cell Distribution Width 14.0 % (11.6-14.8) Platelet Count 15 K/UL (150-450) L Mean Platelet Volume 8.7 FL (6.5-10.1) Neutrophils (%) (Auto) % (45.0-75.0) Lymphocytes (%) (Auto) % (20.0-45.0) Monocytes (%) (Auto) % (1.0-10.0) Eosinophils (%) (Auto) % (0.0-3.0) Basophils (%) (Auto) % (0.0-2.0) Differential Total Cells Counted 100 Neutrophils % (Manual) 85 % (45-75) H Lymphocytes % (Manual) 5 % (20-45) L Monocytes % (Manual) 6 % (1-10) Eosinophils % (Manual) 0 % (0-3) Basophils % (Manual) 0 % (0-2) Band Neutrophils 4 % (0-8) Platelet Estimate Decreased L Platelet Morphology Normal Hypochromasia 1+ Prothrombin Time 11.4 SEC (9.30-11.50) Prothromb Time International Ratio 1.1 (0.9-1.1) Activated Partial Thromboplast Time 29 SEC (23-33) Sodium Level 134 MMOL/L (136-145) #L Potassium Level 3.6 MMOL/L (3.5-5.1) Chloride Level 101 MMOL/L (98-107) Carbon Dioxide Level 17 MMOL/L (21-32) L Anion Gap 16 mmol/L (5-15) H Blood Urea Nitrogen 106 mg/dL (7-18) H Creatinine 4.8 MG/DL (0.55-1.30) H Estimat Glomerular Filtration Rate 9.1 mL/min (>60) Glucose Level 81 MG/DL (74-106) # Lactic Acid Level 3.10 mmol/L (0.66-2.22) H Uric Acid 12.8 MG/DL (2.6-7.2) H Calcium Level 7.5 MG/DL (8.5-10.1) L Phosphorus Level 1.4 MG/DL (2.5-4.9) L Magnesium Level 2.3 MG/DL (1.8-2.4) Total Bilirubin 12.9 MG/DL (0.2-1.0) H Direct Bilirubin 11.1 MG/DL (0.0-0.3) H Gamma Glutamyl Transpeptidase 183 U/L (5-85) H Aspartate Amino Transf (AST/SGOT) 369 U/L (15-37) H Alanine Aminotransferase (ALT/SGPT) 185 U/L (12-78) H Alkaline Phosphatase 787 U/L (46-116) H Total Creatine Kinase 134 U/L (26-308) Troponin I 0.060 ng/mL (0.000-0.056) C-Reactive Protein, Quantitative 31.8 mg/dL (0.00-0.90) H Pro-B-Type Natriuretic Peptide 6805 pg/mL (0-125) H Total Protein 5.0 G/DL (6.4-8.2) L Albumin 1.6 G/DL (3.4-5.0) L Globulin 3.4 g/dL Albumin/Globulin Ratio 0.5 (1.0-2.7) L Lipase 359 U/L (73-393) Vitamin B12 Level 8565 PG/ML (193-986) H Test 07/22/17 08:55 07/22/17 11:35 Arterial Blood pH 7.290 (7.350-7.450) Arterial Blood Partial Pressure CO2 28.0 mmHg (35.0-45.0) L Arterial Blood Partial Pressure O2 74.5 mmHg (75.0-100.0) L Arterial Blood HCO3 13.2 mmol/L (22.0-26.0) L Arterial Blood Oxygen Saturation 94.9 % (92.0-98.0) Arterial Blood Base Excess -12.0 Tr Test Positive Lactic Acid Level 2.10 mmol/L (0.66-2.22) Height (Feet): 5 Height (Inches): 2.00 Weight (Pounds): 150 General Appearance: alert Cardiovascular: normal rate Respiratory/Chest: other - bipap Abdominal Exam: normal bowel sounds, non tender, soft Sybil Galvez N.P. Jul 22, 2017 13:51
--- NOTE | 2017-07-22 14:28 | Cardiology Report ---
APPROVED REPORT EKG Measurement Heart [id number] Normal sinus rhythm Normal ECG
[2017-07-22 15:43] LABS: MEAN CORPUSCULAR HEMOGLOBIN 28.9 PG (27.0-31.0); MEAN CORPUSCULAR HGB CONC 34.3 G/DL (32.0-36.0); MEAN CORPUSCULAR VOLUME 84 FL (80-99); MEAN PLATELET VOLUME 6.4 FL (6.5-10.1); PLATELET COUNT 70 K/UL (150-450); RED BLOOD COUNT 3.03 M/UL (4.20-5.40); RED CELL DISTRIBUTION WIDTH 14.2 % (11.6-14.8)
[2017-07-22 15:52] LABS: WHITE BLOOD COUNT 30.6 K/UL (4.8-10.8)
--- NOTE | 2017-07-22 16:03 | General Progress Note ---
Assessment/Plan Assessment/Plan ASSESSMENT AND RECOMMENDATIONS: 1. Hepatic mass noted potentially secondary to a walled-off abscess versus an actual mass. Exam limited due to inability to use contrast. 2. Thrombocytopenia 2/2 sepsis. Patient is to receive platelets. 3. Anemia, very mild, continue to monitor. 4. Coagulopathy. Mixing study is pending. 5. Leukocytosis 2/2 sepsis 6. Hyperbilirubinemia, mostly direct bilirubin, likely secondary to obstruction versus acute cholangitis. 7. Acute cholangitis, has been seen by ID service. Subjective Allergies: Coded Allergies: No Known Allergies (Unverified , 07/21/17) All Systems: reviewed and negative except above Subjective in a lot of pain Objective Last 24 Hour Vital Signs Date Time Temp Pulse Resp B/P (MAP) Pulse Ox O2 Delivery O2 Flow Rate FiO2 07/22/17 15:23 98.1 80 20 106/78 98 Bi-pap 40 07/22/17 15:08 98.4 81 17 130/44 98 Bi-pap 40 07/22/17 14:43 97.7 77 19 115/44 98 Bi-pap 40 07/22/17 14:28 98.2 81 22 120/47 98 Bi-pap 40 07/22/17 14:00 98.0 81 24 119/57 99 Bi-pap 40 07/22/17 13:55 98.4 82 21 129/49 99 Bi-pap 40 07/22/17 13:40 98.1 81 20 92/31 99 Bi-pap 40 07/22/17 13:18 77 21 98 Facial 40 07/22/17 13:15 81 20 90/30 99 Bi-pap 40 07/22/17 13:15 80 20 92/31 99 Bi-pap 40 07/22/17 13:00 81 20 100/41 99 Bi-pap 40 07/22/17 12:45 76 20 104/37 98 Bi-pap 40 07/22/17 12:30 81 20 121/45 98 Bi-pap 40 07/22/17 12:15 84 21 113/42 98 Bi-pap 40 07/22/17 12:00 98.4 81 20 98/53 99 Bi-pap 40 07/22/17 12:00 81 07/22/17 11:45 84 21 103/40 98 Bi-pap 40 07/22/17 11:30 84 21 100/37 98 Bi-pap 40 07/22/17 11:28 84 21 98 Full Face 40 07/22/17 11:15 158/38 07/22/17 11:15 84 21 158/38 98 Bi-pap 40 07/22/17 11:00 84 21 124/32 98 Bi-pap 40 07/22/17 11:00 124/32 07/22/17 10:10 84 20 97 Full Face 4.0 40 07/22/17 09:15 40 07/22/17 09:15 87 23 105/42 98 Bi-pap 40 07/22/17 09:00 88 22 95/30 98 Bi-pap 35 07/22/17 08:45 85 22 109/31 98 Bi-pap 35 07/22/17 08:30 86 22 96/25 98 Bi-pap 35 07/22/17 08:15 84 22 100/30 98 Bi-pap 35 07/22/17 08:00 85 07/22/17 08:00 35 07/22/17 08:00 85 22 102/27 98 Bi-pap 35 07/22/17 07:45 85 22 86/25 98 Bi-pap 35 07/22/17 07:39 125/31 07/22/17 07:30 86 21 125/31 97 Bi-pap 35 07/22/17 07:15 98.5 86 22 115/36 97 Bi-pap 35 07/22/17 07:00 86 23 102/31 97 Bi-pap 35 07/22/17 06:49 87 22 99 Full Face 35 07/22/17 06:48 Bi-pap 35 07/22/17 06:46 99 Bi-pap 35 07/22/17 06:45 90 23 95/27 98 Bi-pap 35 07/22/17 06:30 82 23 89/27 97 Bi-pap 35 07/22/17 06:15 83 23 96/27 98 Bi-pap 35 07/22/17 06:00 90 22 96/26 98 Bi-pap 35 07/22/17 05:45 87 22 99/24 98 Bi-pap 35 07/22/17 05:30 88 23 93/78 98 Bi-pap 35 07/22/17 05:20 88 24 97 Full Face 35 07/22/17 05:15 88 22 130/41 98 Bi-pap 35 07/22/17 05:00 90 22 93/78 98 Bi-pap 35 07/22/17 04:45 83 22 89/17 98 Bi-pap 50 07/22/17 04:30 86 22 86/22 98 Bi-pap 50 07/22/17 04:15 90 24 74/25 98 Bi-pap 50 07/22/17 04:00 90 07/22/17 04:00 98.9 88 24 90/27 100 Bi-pap 50 07/22/17 04:00 35 07/22/17 03:45 89 23 103/33 98 Bi-pap 50 07/22/17 03:30 87 23 98/36 98 Bi-pap 50 07/22/17 03:18 88 27 98 Full Face 50 07/22/17 03:15 89 23 84/27 98 Bi-pap 50 07/22/17 03:13 69/19 07/22/17 03:00 86 22 69/19 97 Bi-pap 50 07/22/17 02:27 97 07/22/17 02:00 86 21 72/21 97 Bi-pap 50 07/22/17 01:30 88 28 98 Full Face 50 07/22/17 01:00 87 21 80/22 99 Bi-pap 50 07/22/17 00:00 50 07/22/17 00:00 98.7 91 24 87/26 100 Bi-pap 50 07/22/17 00:00 79 07/21/17 23:30 85 23 99 Full Face 50 07/21/17 23:00 95 23 123/50 99 Bi-pap 50 07/21/17 22:00 78 23 136/46 99 Bi-pap 50 07/21/17 22:00 80 18 98 Full Face 50 07/21/17 21:00 79 21 98/65 97 Bi-pap 50 07/21/17 21:00 50 07/21/17 20:00 79 07/21/17 20:00 98.3 78 20 95/42 97 Bi-pap 50 07/21/17 19:39 50 07/21/17 19:30 77 19 98 Full Face 50 07/21/17 19:30 97 Bi-pap 07/21/17 19:30 Bi-pap 07/21/17 19:00 80 22 108/40 97 Bi-pap 50 07/21/17 18:00 83 22 103/55 97 Bi-pap 50 07/21/17 17:07 83 21 98 Full Face 50 07/21/17 17:00 83 24 83/47 96 Bi-pap 50 07/21/17 16:00 87 07/21/17 16:00 83 24 87/41 99 Bi-pap 70 Intake and Output 07/22/17 07/23/17 19:00 07:00 Intake Total 1105.1 ml Output Total 103 ml Balance 1002.1 ml Intake IV Total 1105.1 ml Output Urine Total 103 ml Laboratory Tests 07/21/17 16:05: Arterial Blood pH 7.267L, Arterial Blood Partial Pressure CO2 26.4L, Arterial Blood Partial Pressure O2 132.4H, Arterial Blood HCO3 11.8L, Arterial Blood Oxygen Saturation 98.1H, Arterial Blood Base Excess -13.6, Tr Test Positive 07/22/17 04:00: Urine Color Brown, Urine Appearance Cloudy, Urine pH 5, Urine Specific [place] 1.015, Urine Protein 3+H, Urine Glucose (UA) 1+H, Urine Ketones Negative, Urine Occult Blood 5+H, Urine Nitrite Negative, Urine Bilirubin 2+H, Urine Ictotest Positive, Urine Urobilinogen 1H, Urine Leukocyte Esterase 3+H, Urine RBC TntcH, Urine WBC TntcH, Urine Squamous Epithelial Cells ManyH, Urine Amorphous Sediment ManyH, Urine Bacteria ModerateH, Urine Eosinophils None seen, Urine Potassium Timed 53 07/22/17 04:30: White Blood Count 44.3*H, Red Blood Count 3.52L, Hemoglobin 10.1#L, Hematocrit 29.9#L, Mean Corpuscular Volume 85, Mean Corpuscular Hemoglobin 28.7, Mean Corpuscular Hemoglobin Concent 33.8, Red Cell Distribution Width 14.0, Platelet Count 15L, Mean Platelet Volume 8.7, Neutrophils (%) (Auto) , Lymphocytes (%) ( Auto) , Monocytes (%) (Auto) , Eosinophils (%) (Auto) , Basophils (%) (Auto) , Differential Total Cells Counted 100, Neutrophils % (Manual) 85H, Lymphocytes % (Manual) 5L, Monocytes % (Manual) 6, Eosinophils % (Manual) 0, Basophils % ( Manual) 0, Band Neutrophils 4, Platelet Estimate DecreasedL, Platelet Morphology Normal, Hypochromasia 1+, Prothrombin Time 11.4, Prothromb Time International Ratio 1.1, Activated Partial Thromboplast Time 29, Sodium Level 134#L, Potassium Level 3.6, Chloride Level 101, Carbon Dioxide Level 17L, Anion Gap 16H, Blood Urea Nitrogen 106H, Creatinine 4.8H, Estimat Glomerular Filtration Rate 9.1, Glucose Level 81#, Lactic Acid Level 3.10H, Uric Acid 12.8H , Calcium Level 7.5L, Phosphorus Level 1.4L, Magnesium Level 2.3, Total Bilirubin 12.9H, Direct Bilirubin 11.1H, Gamma Glutamyl Transpeptidase 183H, Aspartate Amino Transf (AST/SGOT) 369H, Alanine Aminotransferase (ALT/SGPT) 185H , Alkaline Phosphatase 787H, Total Creatine Kinase 134, Troponin I 0.060H, C- Reactive Protein, Quantitative 31.8H, Pro-B-Type Natriuretic Peptide 6805H, Total Protein 5.0L, Albumin 1.6L, Globulin 3.4, Albumin/Globulin Ratio 0.5L, Lipase 359, Vitamin B12 Level 8565H 07/22/17 08:55: Arterial Blood pH 7.290L, Arterial Blood Partial Pressure CO2 28.0L, Arterial Blood Partial Pressure O2 74.5L, Arterial Blood HCO3 13.2L, Arterial Blood Oxygen Saturation 94.9, Arterial Blood Base Excess -12.0, Tr Test Positive 07/22/17 11:35: Lactic Acid Level 2.10 07/22/17 15:00: White Blood Count 30.6*H, Red Blood Count 3.03L, Hemoglobin 8.8L, Hematocrit 25.5L, Mean Corpuscular Volume 84, Mean Corpuscular Hemoglobin 28.9, Mean Corpuscular Hemoglobin Concent 34.3, Red Cell Distribution Width 14.2, Platelet Count 70#L, Mean Platelet Volume 6.4L, Neutrophils (%) (Auto) , Lymphocytes (%) (Auto) , Monocytes (%) (Auto) , Eosinophils (%) (Auto) , Basophils (%) (Auto) , Neutrophils % (Manual) [Pending], Lymphocytes % (Manual) [Pending], Platelet Estimate [Pending], Platelet Morphology [Pending] Height (Feet): 5 Height (Inches): 2.00 Weight (Pounds): 150 General Appearance: no apparent distress EENT: normal ENT inspection Neck: normal alignment Cardiovascular: normal peripheral pulses Respiratory/Chest: chest wall non-tender Abdomen: tender Extremities: non-tender Edema: trace edema Skin: palled Adelso Sharma Jul 22, 2017 16:03
--- NOTE | 2017-07-22 16:15 | Pre-Procedure Note/Attestation ---
Pre-Procedure Note/Attestation Complete Prior to Procedure Planned Procedure: not applicable Procedure Narrative: US guided liver biopsy Indications for Procedure Pre-Operative Diagnosis: Liver mass Attestation I attest that I discussed the nature of the procedure; its benefits; risks and complications; and alternatives (and the risks and benefits of such alternatives ), prior to the procedure, with the patient (or the patient's legal practice representative). I attest that, if there was a reasonable possibility of needing a blood transfusion, the patient (or the patient's legal practice representative) was given the [facility] standardized written summary, pursuant to the [place] Blood Safety Act ([place] Health and Safety Code # 1645, as amended). I attest that I re-evaluated the patient just prior to the surgery and that there has been no change in the patient's H&P, except as documented below: THEODORE RAY M.D. Jul 22, 2017 16:15
--- NOTE | 2017-07-22 17:30 | Brief Operative Note ---
Immediate Post Operative Note Operative Note Pre-op Diagnosis: Liver mass Procedure: US guided liver bx Post-op Diagnosis: same Post-op Diagnosis: same as pre-op Findings: consistent w/pre-op dx studies Surgeon: Emilia RAY Anesthesia: local Specimen: yes - 3 18 G cores. One specimen sent for CX Complications: none Condition: stable Fluids: none Estimated Blood Loss: minimal Drains: none Implant(s) used?: No THEODORE RAY M.D. Jul 22, 2017 17:30
[2017-07-22 18:20] LABS: ANISOCYTOSIS 1+; BAND NEUTROPHILS % (MANUAL) 5 % (0-8); BASOPHILS % (MANUAL) 0 % (0-2); EOSINOPHILS % (MANUAL) 0 % (0-3); HYPOCHROMASIA 1+; LYMPHOCYTES % (MANUAL) 4 % (20-45); NEUTROPHILS % (MANUAL) 86 % (45-75); PLATELET ESTIMATE DECREASED; PLATELET MORPHOLOGY NORMAL; TOTAL CELLS COUNTED 100
[2017-07-22] MEDS ORDERED: Amiodarone 900 MG in D5W 500ml 482 ML IV SCH (18:30)
[2017-07-22 18:31] LABS: MEAN CORPUSCULAR HEMOGLOBIN 29.2 PG (27.0-31.0); MEAN CORPUSCULAR HGB CONC 33.4 G/DL (32.0-36.0); MEAN CORPUSCULAR VOLUME 87 FL (80-99); MEAN PLATELET VOLUME 5.9 FL (6.5-10.1); PLATELET COUNT 101 K/UL (150-450); RED BLOOD COUNT 2.81 M/UL (4.20-5.40); RED CELL DISTRIBUTION WIDTH 15.1 % (11.6-14.8); WHITE BLOOD COUNT 19.4 K/UL (4.8-10.8)
[2017-07-22 18:41] LABS: ANION GAP 18 mmol/L (5-15); CALCIUM 7.6 MG/DL (8.5-10.1); CARBON DIOXIDE 16 MMOL/L (21-32); CHLORIDE 102 MMOL/L (98-107); CREATININE 4.8 MG/DL (0.55-1.30); GLOMERULAR FILTRATION RATE 9.1 mL/min (>60); SODIUM 136 MMOL/L (136-145)
[2017-07-22 18:53] LABS: MAGNESIUM 2.8 MG/DL (1.8-2.4)
[2017-07-22] MEDS ORDERED: Sodium Bicarbonate 100 ML in D5 1/2NS 1,000 ML IV SCH (19:00)
[2017-07-22 19:01] LABS: REFLEX LACTIC ACID YES OR NO YES
[2017-07-22 19:29] LABS: ANISOCYTOSIS 1+; BAND NEUTROPHILS % (MANUAL) 8 % (0-8); BASOPHILS % (MANUAL) 1 % (0-2); EOSINOPHILS % (MANUAL) 1 % (0-3); LYMPHOCYTES % (MANUAL) 26 % (20-45); NEUTROPHILS % (MANUAL) 59 % (45-75); TOTAL CELLS COUNTED 100
[2017-07-22 19:30] LABS: HYPOCHROMASIA 1+; PLATELET ESTIMATE DECREASED; PLATELET MORPHOLOGY NORMAL
[2017-07-22] MEDS ORDERED: Dyna-Hex 2% Top Sol 2oz TOPIC SCH (20:00)
[2017-07-22] MEDS ORDERED: 1/2 NS 1000ml IV ONE (20:51)
[2017-07-22] MEDS ORDERED: Tubing Blood Filter IV ONE (20:51)
[2017-07-22] MEDS ORDERED: Tubing IV Secondary IV ONE (20:51)
[2017-07-22] MEDS ORDERED: D5 1/2NS 1000ml IV ONE (20:51)
[2017-07-22] MEDS ORDERED: NS 500ML ONE ×2 (20:51)
[2017-07-22] MEDS ORDERED: Tubing IV Blood Pump IV ONE (20:51)
--- NOTE | 2017-07-22 23:26 | General Progress Note ---
Assessment/Plan Status: deteriorating Assessment/Plan 1. Septic shock. 2. Acute cholangitis. 3. Obstructive hepatobiliary disorder. 4. Diabetes type 2. 5. Liver mass-possibility of cancer cannot be excluded. 6. Hypertriglyceridemia. 7. Hyponatremia. 8. Hepatic failure-obstructive pattern. 9. Renal failure, age indeterminate. 10. Thrombocytopenia. Plan: Poor Prognosis Comment: time of encounter- 11 Am, doesn't reflect time of documentation Noted from ID, Nephro, Pulmonary and Hemonch are reviewed Subjective ROS Limited/Unobtainable: Yes - delirious Gastrointestinal/Abdominal: Reports: abdominal pain Allergies: Coded Allergies: No Known Allergies (Unverified , 07/21/17) Objective Last 24 Hour Vital Signs Date Time Temp Pulse Resp B/P (MAP) Pulse Ox O2 Delivery O2 Flow Rate FiO2 07/22/17 19:39 Mechanical Ventilator 35 07/22/17 19:39 85 Mechanical Ventilator 100 07/22/17 19:17 30 16 100 07/22/17 19:00 32 16 93/38 92 Endotracheal Tube 100 07/22/17 18:45 75 20 86/23 99 Endotracheal Tube 100 07/22/17 18:15 54 20 188/102 97 Endotracheal Tube 100 07/22/17 18:00 72 20 188/102 97 Bi-pap 40 07/22/17 17:45 71 20 170/124 97 Bi-pap 40 07/22/17 17:30 79 20 128/13 97 Bi-pap 40 07/22/17 17:00 76 20 150/48 97 Bi-pap 40 07/22/17 16:31 98.0 76 20 142/48 97 Bi-pap 40 07/22/17 16:29 79 21 99 Facial 4.0 40 07/22/17 16:15 97.9 79 21 137/38 99 Bi-pap 40 07/22/17 16:00 76 07/22/17 15:23 98.1 80 20 106/78 98 Bi-pap 40 07/22/17 15:08 98.4 81 17 130/44 98 Bi-pap 40 07/22/17 14:43 97.7 77 19 115/44 98 Bi-pap 40 07/22/17 14:28 98.2 81 22 120/47 98 Bi-pap 40 07/22/17 14:00 98.0 81 24 119/57 99 Bi-pap 40 07/22/17 13:55 98.4 82 21 129/49 99 Bi-pap 40 07/22/17 13:40 98.1 81 20 92/31 99 Bi-pap 40 07/22/17 13:30 119/57 07/22/17 13:18 77 21 98 Facial 40 07/22/17 13:15 81 20 90/30 99 Bi-pap 40 07/22/17 13:15 80 20 92/31 99 Bi-pap 40 07/22/17 13:00 81 20 100/41 99 Bi-pap 40 07/22/17 12:45 76 20 104/37 98 Bi-pap 40 07/22/17 12:30 81 20 121/45 98 Bi-pap 40 07/22/17 12:15 84 21 113/42 98 Bi-pap 40 07/22/17 12:00 98.4 81 20 98/53 99 Bi-pap 40 07/22/17 12:00 81 07/22/17 11:45 84 21 103/40 98 Bi-pap 40 07/22/17 11:30 84 21 100/37 98 Bi-pap 40 07/22/17 11:28 84 21 98 Full Face 40 07/22/17 11:15 158/38 07/22/17 11:15 84 21 158/38 98 Bi-pap 40 07/22/17 11:00 84 21 124/32 98 Bi-pap 40 07/22/17 11:00 124/32 07/22/17 10:10 84 20 97 Full Face 4.0 40 07/22/17 09:15 40 07/22/17 09:15 87 23 105/42 98 Bi-pap 40 07/22/17 09:00 88 22 95/30 98 Bi-pap 35 07/22/17 08:45 85 22 109/31 98 Bi-pap 35 07/22/17 08:30 86 22 96/25 98 Bi-pap 35 07/22/17 08:15 84 22 100/30 98 Bi-pap 35 07/22/17 08:00 85 07/22/17 08:00 35 07/22/17 08:00 85 22 102/27 98 Bi-pap 35 07/22/17 07:45 85 22 86/25 98 Bi-pap 35 07/22/17 07:39 125/31 07/22/17 07:30 86 21 125/31 97 Bi-pap 35 07/22/17 07:15 98.5 86 22 115/36 97 Bi-pap 35 07/22/17 07:00 86 23 102/31 97 Bi-pap 35 07/22/17 06:49 87 22 99 Full Face 35 07/22/17 06:48 Bi-pap 35 07/22/17 06:46 99 Bi-pap 35 07/22/17 06:45 90 23 95/27 98 Bi-pap 35 07/22/17 06:30 82 23 89/27 97 Bi-pap 35 07/22/17 06:15 83 23 96/27 98 Bi-pap 35 07/22/17 06:00 90 22 96/26 98 Bi-pap 35 07/22/17 05:45 87 22 99/24 98 Bi-pap 35 07/22/17 05:30 88 23 93/78 98 Bi-pap 35 07/22/17 05:20 88 24 97 Full Face 35 07/22/17 05:15 88 22 130/41 98 Bi-pap 35 07/22/17 05:00 90 22 93/78 98 Bi-pap 35 07/22/17 04:45 83 22 89/17 98 Bi-pap 50 07/22/17 04:30 86 22 86/22 98 Bi-pap 50 07/22/17 04:15 90 24 74/25 98 Bi-pap 50 07/22/17 04:00 90 07/22/17 04:00 98.9 88 24 90/27 100 Bi-pap 50 07/22/17 04:00 35 07/22/17 03:45 89 23 103/33 98 Bi-pap 50 07/22/17 03:30 87 23 98/36 98 Bi-pap 50 07/22/17 03:18 88 27 98 Full Face 50 07/22/17 03:15 89 23 84/27 98 Bi-pap 50 07/22/17 03:13 69/19 07/22/17 03:00 86 22 69/19 97 Bi-pap 50 07/22/17 02:27 97 07/22/17 02:00 86 21 72/21 97 Bi-pap 50 07/22/17 01:30 88 28 98 Full Face 50 07/22/17 01:00 87 21 80/22 99 Bi-pap 50 07/22/17 00:00 50 11/28/17 00:00 98.7 91 24 87/26 100 Bi-pap 50 07/22/17 00:00 79 07/21/17 23:30 85 23 99 Full Face 50 Intake and Output 07/22/17 07/23/17 19:00 07:00 Intake Total 2526.8 ml Output Total 143 ml Balance 2383.8 ml Intake IV Total 1326.8 ml Blood Product 1200 ml Output Urine Total 143 ml Laboratory Tests 07/22/17 04:00: Urine Color Brown, Urine Appearance Cloudy, Urine pH 5, Urine Specific [place] 1.015, Urine Protein 3+H, Urine Glucose (UA) 1+H, Urine Ketones Negative, Urine Occult Blood 5+H, Urine Nitrite Negative, Urine Bilirubin 2+H, Urine Ictotest Positive, Urine Urobilinogen 1H, Urine Leukocyte Esterase 3+H, Urine RBC TntcH, Urine WBC TntcH, Urine Squamous Epithelial Cells ManyH, Urine Amorphous Sediment ManyH, Urine Bacteria ModerateH, Urine Eosinophils None seen, Urine Potassium Timed 53 07/22/17 04:30: White Blood Count 44.3*H, Red Blood Count 3.52L, Hemoglobin 10.1#L, Hematocrit 29.9#L, Mean Corpuscular Volume 85, Mean Corpuscular Hemoglobin 28.7, Mean Corpuscular Hemoglobin Concent 33.8, Red Cell Distribution Width 14.0, Platelet Count 15L, Mean Platelet Volume 8.7, Neutrophils (%) (Auto) , Lymphocytes (%) ( Auto) , Monocytes (%) (Auto) , Eosinophils (%) (Auto) , Basophils (%) (Auto) , Differential Total Cells Counted 100, Neutrophils % (Manual) 85H, Lymphocytes % (Manual) 5L, Monocytes % (Manual) 6, Eosinophils % (Manual) 0, Basophils % ( Manual) 0, Band Neutrophils 4, Platelet Estimate DecreasedL, Platelet Morphology Normal, Hypochromasia 1+, Prothrombin Time 11.4, Prothromb Time International Ratio 1.1, Activated Partial Thromboplast Time 29, Sodium Level 134#L, Potassium Level 3.6, Chloride Level 101, Carbon Dioxide Level 17L, Anion Gap 16H, Blood Urea Nitrogen 106H, Creatinine 4.8H, Estimat Glomerular Filtration Rate 9.1, Glucose Level 81#, Lactic Acid Level 3.10H, Uric Acid 12.8H , Calcium Level 7.5L, Phosphorus Level 1.4L, Magnesium Level 2.3, Total Bilirubin 12.9H, Direct Bilirubin 11.1H, Gamma Glutamyl Transpeptidase 183H, Aspartate Amino Transf (AST/SGOT) 369H, Alanine Aminotransferase (ALT/SGPT) 185H , Alkaline Phosphatase 787H, Total Creatine Kinase 134, Troponin I 0.060H, C- Reactive Protein, Quantitative 31.8H, Pro-B-Type Natriuretic Peptide 6805H, Total Protein 5.0L, Albumin 1.6L, Globulin 3.4, Albumin/Globulin Ratio 0.5L, Lipase 359, Vitamin B12 Level 8565H 07/22/17 08:55: Arterial Blood pH 7.290L, Arterial Blood Partial Pressure CO2 28.0L, Arterial Blood Partial Pressure O2 74.5L, Arterial Blood HCO3 13.2L, Arterial Blood Oxygen Saturation 94.9, Arterial Blood Base Excess -12.0, Tr Test Positive 07/22/17 11:35: Lactic Acid Level 2.10 07/22/17 15:00: White Blood Count 30.6*H, Red Blood Count 3.03L, Hemoglobin 8.8L, Hematocrit 25.5L, Mean Corpuscular Volume 84, Mean Corpuscular Hemoglobin 28.9, Mean Corpuscular Hemoglobin Concent 34.3, Red Cell Distribution Width 14.2, Platelet Count 70#L, Mean Platelet Volume 6.4L, Neutrophils (%) (Auto) , Lymphocytes (%) (Auto) , Monocytes (%) (Auto) , Eosinophils (%) (Auto) , Basophils (%) (Auto) , Differential Total Cells Counted 100, Neutrophils % (Manual) 86H, Lymphocytes % (Manual) 4L, Monocytes % (Manual) 5, Eosinophils % (Manual) 0, Basophils % ( Manual) 0, Band Neutrophils 5, Platelet Estimate DecreasedL, Platelet Morphology Normal, Hypochromasia 1+, Anisocytosis 1+ 07/22/17 17:59: White Blood Count 19.4H, Red Blood Count 2.81L, Hemoglobin 8.2L, Hematocrit 24.6L, Mean Corpuscular Volume 87, Mean Corpuscular Hemoglobin 29.2, Mean Corpuscular Hemoglobin Concent 33.4, Red Cell Distribution Width 15.1H, Platelet Count 101L, Mean Platelet Volume 5.9L, Neutrophils (%) (Auto) , Lymphocytes (%) (Auto) , Monocytes (%) (Auto) , Eosinophils (%) (Auto) , Basophils (%) (Auto) , Differential Total Cells Counted 100, Neutrophils % ( Manual) 59, Lymphocytes % (Manual) 26, Monocytes % (Manual) 5, Eosinophils % ( Manual) 1, Basophils % (Manual) 1, Band Neutrophils 8, Platelet Estimate DecreasedL, Platelet Morphology Normal, Hypochromasia 1+, Anisocytosis 1+, Activated Partial Thromboplast Time 42H, Sodium Level 136, Potassium Level 4.0, Chloride Level 102, Carbon Dioxide Level 16L, Anion Gap 18H, Blood Urea Nitrogen 111H, Creatinine 4.8H, Estimat Glomerular Filtration Rate 9.1, Glucose Level 185#H, Lactic Acid Level 7.80H, Calcium Level 7.6L, Phosphorus Level 3.0, Magnesium Level 2.8H, Troponin I 0.045, Pro-B-Type Natriuretic Peptide 9496H Height (Feet): 5 Height (Inches): 2.00 Weight (Pounds): 150 General Appearance: no apparent distress EENT: other - diffuse icterus in both eyes Neck: supple Cardiovascular: normal rate Extremities: non-tender, other - moves x 4 , following commands Neurologic: clinical documentation manager II-XII grossly normal, disoriented Skin: jaundice Logan Villagomez MD Jul 22, 2017 23:26
--- NOTE | 2017-07-22 23:56 | Emergency Room Report ---
History of Present Illness General Chief Complaint: Abdominal Pain Present Illness HPI CODE BLUE was called overhead on this patient. I responded to the ICU. Apparently this patient had been admitted previously day for septic shock and ascending cholangitis. She was in liver failure and found to have a liver mass versus an abscess. The patient had just underwent a liver biopsy by interventional radiology and after the procedure became unresponsive, and became bradycardic, then asystolic and then lost a pulse. On my arrival, CPR is in progress. Apparently, the patient had been on BiPAP and improving. Allergies: Coded Allergies: No Known Allergies (Unverified , 07/21/17) Patient History Now: No Nursing Documentation-PMH Hx Cardiac Problems: No Hx Diabetes: Yes - pre diabetes Hx Cancer: No Hx Gastrointestinal Problems: No Hx Neurological Problems: No Physical Exam Vital Signs Date Time Temp Pulse Resp B/P (MAP) Pulse Ox O2 Delivery O2 Flow Rate FiO2 07/21/17 04:51 97.0 90 24 89/50 95 Room Air 07/21/17 06:41 4.0 07/21/17 13:00 100 Sp02 EP Interpretation: other - Bag/valve mask. Sp02 70's General Appearance: obese, other - Unresponsive. Head: normocephalic Neck: full range of motion Respiratory: other - Not breathing Cardiovascular #1: other - No pulse. CPR in progress. Gastrointestinal: soft, distended Musculoskeletal: other - anasarca Neurologic: other - GCS 3. Skin: jaundice Procedures Intubation Intubation : Consent: Emergent Intubation Method: orotracheal Tube Size (cm): 7.5 Breath Sounds after Intubation: right greater than left Intubation Complications: no complications Post Intubation Xray: Yes Progress/Xray Impression: L. lung pleural effusion. ET tube in R. mainstem. Attempts: One Patient Tolerated: Well Complications: None Progress First chest x-ray able to be obtained after the endotracheal tube showed the tube in the right main stem bronchus. Likely the tube was dislodged and pushed him during CPR. The ET tube was pulled back 3 cm. Medical Decision Making Diagnostic Impression: Primary Impression: Cardiopulmonary arrest ER Course I was called to the ICU repeatedly over an hour and a half timeframe. The patient underwent roughly 7 CODE BLUE resuscitations in that timeframe. Please see the official RN record. The patient underwent resuscitations per standard ACLS protocol. She had multiple spontaneous return of circulation, but then would shortly thereafter developed bradycardia and and go into asystole or PEA. She did have one episode of V. tach and was defibrillated at that time. She underwent multiple milligrams of epinephrine. She was given several milligrams of atropine at different points. She was given an amiodarone bolus. She was also placed on amiodarone drip. She was given bicarbonate. The patient has severe coagulopathy and possibly had an intracranial bleed. Other considerations include pathologic arrhythmia related to acidosis. Also possible etiologies include PE. Regardless, this patient repeatedly became asystolic during an hour and a half timeframe. She became bradycardic and asystolic and I felt that further resuscitation was futile. Further, the likelihood of any significant neurologic outcome was low given the length of time of resuscitation. Time of 1952. Laboratory Tests Test 07/21/17 05:00 07/21/17 06:20 07/21/17 07:00 07/21/17 09:30 White Blood Count 42.2 K/UL (4.8-10.8) *H Red Blood Count 5.13 M/UL (4.20-5.40) Hemoglobin 14.8 G/DL (12.0-16.0) Hematocrit 44.9 % (37.0-47.0) Mean Corpuscular Volume 88 FL (80-99) Mean Corpuscular Hemoglobin 28.9 PG (27.0-31.0) Mean Corpuscular Hemoglobin Concent 33.1 G/DL (32.0-36.0) Red Cell Distribution Width 13.7 % (11.6-14.8) Platelet Count 13 K/UL (150-450) L Mean Platelet Volume 8.2 FL (6.5-10.1) Neutrophils (%) (Auto) % (45.0-75.0) Lymphocytes (%) (Auto) % (20.0-45.0) Monocytes (%) (Auto) % (1.0-10.0) Eosinophils (%) (Auto) % (0.0-3.0) Basophils (%) (Auto) % (0.0-2.0) Differential Total Cells Counted 100 Neutrophils % (Manual) 71 % (45-75) Lymphocytes % (Manual) 4 % (20-45) L Monocytes % (Manual) 6 % (1-10) Eosinophils % (Manual) 0 % (0-3) Basophils % (Manual) 0 % (0-2) Band Neutrophils 19 % (0-8) H Platelet Estimate Decreased L Platelet Morphology Normal Red Blood Cell Morphology Normal Reticulocyte Count 0.4 % (0.0-2.0) Prothrombin Time 10.4 SEC (9.30-11.50) Prothrombin Time INR 1.0 (0.9-1.1) PTT 34 SEC (23-33) H Sodium Level 122 MMOL/L (136-145) L Potassium Level 3.9 MMOL/L (3.5-5.1) Chloride Level 82 MMOL/L (98-107) L Carbon Dioxide Level 16 MMOL/L (21-32) L Anion Gap 25 mmol/L (5-15) H Blood Urea Nitrogen 101 mg/dL (7-18) H Creatinine 5.8 MG/DL (0.55-1.30) H Estimate Glomerular Filtration Rate 7.3 mL/min (>60) Glucose Level 458 MG/DL (74-106) H Lactic Acid Level 11.10 mmol/L (0.66-2.22) H 4.30 mmol/L (0.66-2.22) H Uric Acid 12.4 MG/DL (2.6-7.2) H Calcium Level 9.2 MG/DL (8.5-10.1) Iron Level 59 ug/dL (50-175) Total Iron Binding Capacity 166 ug/dL (250-450) L Percent Iron Saturation 36 % (15-50) Unsaturated Iron Binding 107 ug/dL (112-346) L Ferritin > 2000 NG/ML (8-388) H Total Bilirubin 9.9 MG/DL (0.2-1.0) H Direct Bilirubin 8.6 MG/DL (0.0-0.3) H Aspartate Amino Transferase (AST) 215 U/L (15-37) H Alanine Aminotransferase (ALT) 208 U/L (12-78) H Alkaline Phosphatase 840 U/L (46-116) H Total Creatine Kinase 33 U/L (26-308) Total Protein 6.4 G/DL (6.4-8.2) Albumin 1.9 G/DL (3.4-5.0) L Globulin 4.5 g/dL Albumin/Globulin Ratio 0.4 (1.0-2.7) L Folate 25.6 NG/ML (8.6-58.9) Thyroid Stimulating Hormone (TSH) 0.621 uiU/mL (0.358-3.740) HIV (1&2) Antibody Rapid Negative (NEGATIVE) Urine Color Brown Urine Appearance Very cloudy Urine pH 5 (4.5-8.0) Urine Specific [place] 1.015 (1.005-1.035) Urine Protein 3+ (NEGATIVE) H Urine Glucose (UA) 2+ (NEGATIVE) H Urine Ketones Negative (NEGATIVE) Urine Occult Blood 3+ (NEGATIVE) H Urine Nitrite Negative (NEGATIVE) Urine Bilirubin 2+ (NEGATIVE) H Urine Ictotest Positive Urine Urobilinogen 4 MG/DL (0.0-1.0) H Urine Leukocyte Esterase 3+ (NEGATIVE) H Urine RBC 5-10 /HPF (0 - 2) H Urine WBC 5-10 /HPF (0 - 2) H Urine Squamous Epithelial Cells Moderate /LPF (NONE/OCC) H Urine Amorphous Sediment Many /LPF (NONE) H Urine Bacteria Moderate /HPF (NONE) H Hemoglobin A1c 11.5 % (4.3-6.0) H Troponin I 0.000 ng/mL (0.000-0.056) Triglycerides Level 671 MG/DL (30-150) H Cholesterol Level 165 MG/DL (< 200) LDL Cholesterol 68 mg/dL (<100) HDL Cholesterol 10 MG/DL (40-60) L Cholesterol/HDL Ratio 16.5 (3.3-4.4) H Test 07/21/17 11:15 07/21/17 14:35 07/21/17 16:05 07/22/17 04:00 Hemoglobin A Pending Hemoglobin A2 Pending Hemoglobin C Pending Hemoglobin F () Pending Hemoglobin S Pending Variant Hemoglobin Pending Hemoglobin Electrophoresis Interp Pending Hemoglobin Interpretation Pending Hemoglobin Solubility Pending PTT Mixing Study Pending APTT Patient/Control Mix Pending Mix PTT Incubation Time Pending Mix PTT Normal/Saline 1:1 Immediate Pending Thrombin Time Normal Plasma Pending Fibrinogen 674 mg/dL (200-400) H D-Dimer 2.63 mg/L FEU (0.00-0.49) H Lactic Acid Level 2.00 mmol/L (0.66-2.22) Alpha Fetoprotein 1.4 ng/mL (0.0-8.3) CA 15-3 Antigen 39.6 U/mL (0.0-25.0) H CA 125 Antigen 88.8 U/mL (0.0-38.1) H Homocystine 28.9 umol/L (0.0-15.0) H Heparin-PF4 Antibody Screen Pending Hepatitis A IgM Antibody Negative (Negative) Hepatitis B Surface Antigen Negative (Negative) Hepatitis B Core IgM Antibody Negative (Negative) Hepatitis C Antibody <0.1 s/co ratio Arterial Blood pH 7.100 (7.350-7.450) 7.267 (7.350-7.450) Arterial Blood Partial Pressure CO2 41.5 mmHg (35.0-45.0) 26.4 mmHg (35.0-45.0) L Arterial Blood Partial Pressure O2 79.5 mmHg (75.0-100.0) 132.4 mmHg (75.0-100.0) H Arterial Blood HCO3 12.6 mmol/L (22.0-26.0) L 11.8 mmol/L (22.0-26.0) L Arterial Blood Oxygen Saturation 93.4 % (92.0-98.0) 98.1 % (92.0-98.0) H Arterial Blood Base Excess -16.4 -13.6 Tr Test Positive Positive Urine Color Brown Urine Appearance Cloudy Urine pH 5 (4.5-8.0) Urine Specific [place] 1.015 (1.005-1.035) Urine Protein 3+ (NEGATIVE) H Urine Glucose (UA) 1+ (NEGATIVE) H Urine Ketones Negative (NEGATIVE) Urine Occult Blood 5+ (NEGATIVE) H Urine Nitrite Negative (NEGATIVE) Urine Bilirubin 2+ (NEGATIVE) H Urine Ictotest Positive Urine Urobilinogen 1 MG/DL (0.0-1.0) H Urine Leukocyte Esterase 3+ (NEGATIVE) H Urine RBC Tntc /HPF (0 - 2) H Urine WBC Tntc /HPF (0 - 2) H Urine Squamous Epithelial Cells Many /LPF (NONE/OCC) H Urine Amorphous Sediment Many /LPF (NONE) H Urine Bacteria Moderate /HPF (NONE) H Urine Eosinophils None seen Urine Potassium Timed 53 mmol/L (12-62) Test 07/22/17 04:30 07/22/17 08:55 07/22/17 11:35 07/22/17 15:00 White Blood Count 44.3 K/UL (4.8-10.8) *H 30.6 K/UL (4.8-10.8) *H Red Blood Count 3.52 M/UL (4.20-5.40) L 3.03 M/UL (4.20-5.40) L Hemoglobin 10.1 G/DL (12.0-16.0) #L 8.8 G/DL (12.0-16.0) L Hematocrit 29.9 % (37.0-47.0) #L 25.5 % (37.0-47.0) L Mean Corpuscular Volume 85 FL (80-99) 84 FL (80-99) Mean Corpuscular Hemoglobin 28.7 PG (27.0-31.0) 28.9 PG (27.0-31.0) Mean Corpuscular Hemoglobin Concent 33.8 G/DL (32.0-36.0) 34.3 G/DL (32.0-36.0) Red Cell Distribution Width 14.0 % (11.6-14.8) 14.2 % (11.6-14.8) Platelet Count 15 K/UL (150-450) L 70 K/UL (150-450) #L Mean Platelet Volume 8.7 FL (6.5-10.1) 6.4 FL (6.5-10.1) L Neutrophils (%) (Auto) % (45.0-75.0) % (45.0-75.0) Lymphocytes (%) (Auto) % (20.0-45.0) % (20.0-45.0) Monocytes (%) (Auto) % (1.0-10.0) % (1.0-10.0) Eosinophils (%) (Auto) % (0.0-3.0) % (0.0-3.0) Basophils (%) (Auto) % (0.0-2.0) % (0.0-2.0) Differential Total Cells Counted 100 100 Neutrophils % (Manual) 85 % (45-75) H 86 % (45-75) H Lymphocytes % (Manual) 5 % (20-45) L 4 % (20-45) L Monocytes % (Manual) 6 % (1-10) 5 % (1-10) Eosinophils % (Manual) 0 % (0-3) 0 % (0-3) Basophils % (Manual) 0 % (0-2) 0 % (0-2) Band Neutrophils 4 % (0-8) 5 % (0-8) Platelet Estimate Decreased L Decreased L Platelet Morphology Normal Normal Hypochromasia 1+ 1+ Prothrombin Time 11.4 SEC (9.30-11.50) Prothrombin Time INR 1.1 (0.9-1.1) PTT 29 SEC (23-33) Sodium Level 134 MMOL/L (136-145) #L Potassium Level 3.6 MMOL/L (3.5-5.1) Chloride Level 101 MMOL/L (98-107) Carbon Dioxide Level 17 MMOL/L (21-32) L Anion Gap 16 mmol/L (5-15) H Blood Urea Nitrogen 106 mg/dL (7-18) H Creatinine 4.8 MG/DL (0.55-1.30) H Estimate Glomerular Filtration Rate 9.1 mL/min (>60) Glucose Level 81 MG/DL (74-106) # Lactic Acid Level 3.10 mmol/L (0.66-2.22) H 2.10 mmol/L (0.66-2.22) Uric Acid 12.8 MG/DL (2.6-7.2) H Calcium Level 7.5 MG/DL (8.5-10.1) L Phosphorus Level 1.4 MG/DL (2.5-4.9) L Magnesium Level 2.3 MG/DL (1.8-2.4) Total Bilirubin 12.9 MG/DL (0.2-1.0) H Direct Bilirubin 11.1 MG/DL (0.0-0.3) H Gamma Glutamyl Transpeptidase 183 U/L (5-85) H Aspartate Amino Transferase (AST) 369 U/L (15-37) H Alanine Aminotransferase (ALT) 185 U/L (12-78) H Alkaline Phosphatase 787 U/L (46-116) H Total Creatine Kinase 134 U/L (26-308) Troponin I 0.060 ng/mL (0.000-0.056) C-Reactive Protein, Quantitative 31.8 mg/dL (0.00-0.90) H Pro-B-Type Natriuretic Peptide 6805 pg/mL (0-125) H Total Protein 5.0 G/DL (6.4-8.2) L Albumin 1.6 G/DL (3.4-5.0) L Globulin 3.4 g/dL Albumin/Globulin Ratio 0.5 (1.0-2.7) L Lipase 359 U/L (73-393) Vitamin B12 Level 8565 PG/ML (193-986) H Arterial Blood pH 7.290 (7.350-7.450) Arterial Blood Partial Pressure CO2 28.0 mmHg (35.0-45.0) L Arterial Blood Partial Pressure O2 74.5 mmHg (75.0-100.0) L Arterial Blood HCO3 13.2 mmol/L (22.0-26.0) L Arterial Blood Oxygen Saturation 94.9 % (92.0-98.0) Arterial Blood Base Excess -12.0 Tr Test Positive Anisocytosis 1+ Test 07/22/17 17:59 White Blood Count 19.4 K/UL (4.8-10.8) H Red Blood Count 2.81 M/UL (4.20-5.40) L Hemoglobin 8.2 G/DL (12.0-16.0) L Hematocrit 24.6 % (37.0-47.0) L Mean Corpuscular Volume 87 FL (80-99) Mean Corpuscular Hemoglobin 29.2 PG (27.0-31.0) Mean Corpuscular Hemoglobin Concent 33.4 G/DL (32.0-36.0) Red Cell Distribution Width 15.1 % (11.6-14.8) H Platelet Count 101 K/UL (150-450) L Mean Platelet Volume 5.9 FL (6.5-10.1) L Neutrophils (%) (Auto) % (45.0-75.0) Lymphocytes (%) (Auto) % (20.0-45.0) Monocytes (%) (Auto) % (1.0-10.0) Eosinophils (%) (Auto) % (0.0-3.0) Basophils (%) (Auto) % (0.0-2.0) Differential Total Cells Counted 100 Neutrophils % (Manual) 59 % (45-75) Lymphocytes % (Manual) 26 % (20-45) Monocytes % (Manual) 5 % (1-10) Eosinophils % (Manual) 1 % (0-3) Basophils % (Manual) 1 % (0-2) Band Neutrophils 8 % (0-8) Platelet Estimate Decreased L Platelet Morphology Normal Hypochromasia 1+ Anisocytosis 1+ PTT 42 SEC (23-33) H Sodium Level 136 MMOL/L (136-145) Potassium Level 4.0 MMOL/L (3.5-5.1) Chloride Level 102 MMOL/L (98-107) Carbon Dioxide Level 16 MMOL/L (21-32) L Anion Gap 18 mmol/L (5-15) H Blood Urea Nitrogen 111 mg/dL (7-18) H Creatinine 4.8 MG/DL (0.55-1.30) H Estimate Glomerular Filtration Rate 9.1 mL/min (>60) Glucose Level 185 MG/DL (74-106) #H Lactic Acid Level 7.80 mmol/L (0.66-2.22) H Calcium Level 7.6 MG/DL (8.5-10.1) L Phosphorus Level 3.0 MG/DL (2.5-4.9) Magnesium Level 2.8 MG/DL (1.8-2.4) H Troponin I 0.045 ng/mL (0.000-0.056) Pro-B-Type Natriuretic Peptide 9496 pg/mL (0-125) H Last Vital Signs Date Time Temp Pulse Resp B/P (MAP) Pulse Ox O2 Delivery O2 Flow Rate FiO2 07/22/17 19:39 Mechanical Ventilator 35 07/22/17 19:39 85 07/22/17 19:17 30 16 07/22/17 19:00 93/38 07/22/17 16:31 98.0 07/22/17 16:29 4.0 Disposition: Condition: Scripts No Active Prescriptions or Reported Meds Referrals: NOT CHOSEN IPA/,REFERRING (PCP) ERGIS PAYNE D.O. Jul 22, 2017 23:56
[2017-07-23 10:24] LABS: OTHERS PATHOLOGIST COMMENT
--- NOTE | 2017-07-23 10:57 | Diagnostic Imaging Report ---
Indication: MASS hepatic mass versus abscess seen on prior ultrasound and CT Technique: Indications for procedure discussed by phone with attending physician Dr. Mensah when the procedure was requested. Prior imaging studies reviewed. Informed consent obtained prior to commencement of the procedure, preprocedure attestation placed in the electronic medical record. Patient received preprocedure platelet transfusion due to preprocedure thrombocytopenia. Platelet count after 2 of the 4 units was 70. Procedure imaging used to localize optimal puncture site. Also, preprocedure imaging with color Doppler was used to assess for vascularity. This indicated internal vascularity indicating the lesion was more likely tumor than abscess. Preprocedure timeout performed. Sterile prepping and draping. Local anesthesia with subcutaneous lidocaine. Anterior subcostal approach was selected, as this provided good visualization of the lesion, avoided the pleural space and patient was unlikely to be successfully positioned for a posterior intercostal approach. Under real-time ultrasound guidance, a 17-gauge guide needle was inserted via an anterior subcostal approach. Care was taken to pass the guide needle through normal hepatic parenchyma before entering the target lesion. Blood rather than pus spontaneously exited the guide needle. Total of 3 specimens were obtained from the target mass using 18-gauge automated Achieve biopsy gun. 2 of of these were sent for histology, and one was sent for culture and sensitivity. The needle was removed. The anterior liver at the puncture site was imaged, and no active bleeding was observed under ultrasound. Immediate post procedure note was placed on the electronic medical record Approximately 10 minutes after the conclusion of the procedure, patient became unresponsive and CODE BLUE was called Comparison: Reference made to ultrasound and CT scan of the previous day Findings: As mentioned above, the lesion is vascular, indicating more likely tumor than abscess. Also, no pus was aspirated, also favoring tumor as etiology and therefore no drainage procedure was performed. Intraprocedural images document satisfactory position within the tumor of the guide needle and subsequent needle passes. After the needle was removed, the liver was imaged and no active bleeding was observed Impression: Biopsy of right lobe liver mass, as described, yielding 3 core specimens. Specimens sent for pathology as well as microbiology. As no zion pus was obtained, lesion was thought much more likely represent a mass lesion rather than abscess and no drainage was attempted Procedure complicated by post procedure CODE BLUE
--- NOTE | 2017-07-23 11:12 | Diagnostic Imaging Report ---
Indication: Status post intubation Technique: One view of the chest Comparison: 11 hours earlier Findings: Interim endotracheal intubation, tip of the endotracheal tube projected at the orifice of the right mainstem bronchus. Some atelectasis is again demonstrated in the left midlung. Nodular interstitial opacities are somewhat more apparent than on the prior exam. No focal airspace consolidation. No effusions. No pneumothorax. There is a fracture of the left lateral seventh rib, not evident previously. The stomach is somewhat distended. There are overlying defibrillator paddles Impression: Malposition of endotracheal tube, tip at the right mainstem bronchus orifice. Critical value finding was not called as patient shortly after the exam Bilateral mild nodular interstitial disease, nonspecific as regards etiology, somewhat increased from exam of earlier the same day Left rib fracture, presumably related to CODE BLUE procedure
--- NOTE | 2017-07-23 23:09 | Discharge Summary ---
Discharge Summary Hospital Course Date of Admission Jul 21, 2017 at 05:57 Date of Discharge Jul 22, 2017 at 20:52 Admitting Diagnosis sepsis,peritonitis HPI Meera Covarrubias is a 66 year old female who was admitted on Jul 21, 2017 at 05:57 for Sepsis,Peritonitis Hospital Course [id number] Discharge Discharge Disposition Patient Discharge Diagnoses: Daina Boswell NP Jul 23, 2017 23:09
--- NOTE | 2017-07-24 04:30 | Discharge Summary 2 SIG ---
DATE OF ADMISSION: 07/21/2017 DATE OF DISCHARGE: 07/22/2017 BRIEF SUMMARY BRIEF HISTORY AND HOSPITAL COURSE: The patient was a 66-year-old female, who was transferred by family members from home due to increased abdominal pain with episodes of fever. The patient had been transferred via 911 as the patient had been getting worse. She had been having abdominal pain on and off for two weeks and with fever nightly. She had vomiting and diarrhea and [id number]-[id number] medications did not help. She did not have regular medical checkups and was not diagnosed with any medical condition. On evaluation at ED, she was noted to have severe leukocytosis. WBC was elevated to 42. Band neutrophils were 19%. Creatinine was elevated to 5.8. BUN was 101. Lactic acid was 11. LFTs were elevated. Alkaline phosphatase was 840. She came in hypotensive, blood pressure 99/48, MAP of 61. She was given fluid resuscitation and was started on IV antibiotics, Zosyn and Levaquin. CAT scan of the abdomen showed heterogeneous mass versus abscess versus infarction versus neoplasm of the liver and findings with acute cholangitis. She was admitted to ICU. She underwent surgical and gastrointestinal evaluation. She was continued on IV hydration and was placed on n.p.o. Given elevated total bilirubin, possibly obstructive in nature. She continued to have leukocytosis and continued to be hypotensive. Antibiotics were adjusted. She was given IV vancomycin and Zosyn was switched to meropenem. Urine culture showed growth of Klebsiella and blood culture was showing gram-negative bacilli. Amikacin was added to her regimen. She had abdominal ultrasound done that showed a right lobe liver mass with echogenicity in the liver, presumably representing intrahepatic gas. There was presence of cholelithiasis and apparent gallbladder wall thickening. Hepatitis screen was negative. HIV screen was negative. She had thrombocytopenia with platelet count of 15,000. DIC workup in process. She had venous duplex of lower extremities done which showed negative for DVT. She underwent ultrasound-guided liver biopsy. On 07/22/2017, she had a code blue. She was orally intubated and was given several rounds of ACLS protocol; however, resuscitative efforts failed and the patient eventually . FINAL DIAGNOSES: 1. Cardiopulmonary arrest. 2. Severe sepsis with septic shock and bacteremia. 3. Acute cholangitis. 4. Obstructive hepatobiliary disorder. 5. Diabetes, type 2. 6. Liver mass, possibility of cancer cannot be excluded. 7. Hypertriglyceridemia. 8. Hyponatremia. 9. Hepatic failure, obstructive pattern. 10. Renal failure, age indeterminate. 11. Thrombocytopenia. 12. Anemia. 13. Hyperbilirubinemia. 14. Coagulopathy. 15. Hyperlipidemia. 16. Diabetes mellitus, out of control. 17. Acute liver injury. 18. Pyuria, possible urinary tract infection with gram-negative bacteria. 19. Peritonitis. Logan Villagomez M.D. I have been assigned to dictate discharge summary on this account and I was not involved in the patient's management. Diana Boswell N.P. DR: Tracy JOB#: [id number] CC: CARLOS
[2017-07-28 09:02] LABS: HEMOGLOBIN A 97.8 % (94.0-98.0); HEMOGLOBIN A2 2.2 % (0.7-3.1)
== END 2017-07-22 20:52 | disposition expired | DRG 871 ==
LOC: EDBD 04:51 → EMR 04:55 → ICU 05:57 → EDBEDREQ 06:24 → EDBEDREQSVC 06:24 → EDBEDREQ 06:39
PROC: 06HM33Z Insertion of Infusion Device into Right Femoral Vein, Percutaneous Approach (ICD-10-PCS; principal; 2017-07-21)
PROC: 5A09357 Assistance with Respiratory Ventilation, Less than 24 Consecutive Hours, Continuous Positive Airway Pressure (ICD-10-PCS; principal; 2017-07-21)
PROC: 5A12012 Performance of Cardiac Output, Single, Manual (ICD-10-PCS; 2017-07-22)
PROC: 3E033XZ Introduction of Vasopressor into Peripheral Vein, Percutaneous Approach (ICD-10-PCS; 2017-07-22)
PROC: 0FB03ZX Excision of Liver, Percutaneous Approach, Diagnostic (ICD-10-PCS; 2017-07-22)
DX: A41.9 Sepsis, unspecified organism (principal); R65.21 Severe sepsis with septic shock; K72.00 Acute and subacute hepatic failure without coma; K83.0 Cholangitis; K65.9 Peritonitis, unspecified; E87.2 Acidosis; D68.9 Coagulation defect, unspecified; E87.1 Hypo-osmolality and hyponatremia; N39.0 Urinary tract infection, site not specified; D69.6 Thrombocytopenia, unspecified; E11.65 Type 2 diabetes mellitus with hyperglycemia; K80.20 Calculus of gallbladder without cholecystitis without obstruction; E86.0 Dehydration; E78.1 Pure hyperglyceridemia; D64.9 Anemia, unspecified; E80.6 Other disorders of bilirubin metabolism; N19 Unspecified kidney failure; R16.0 Hepatomegaly, not elsewhere classified; B96.89 Other specified bacterial agents as the cause of diseases classified elsewhere
CPT/HCPCS: 36415; 36600; 71010; 74176; 76700; 76942; 80048; 80053; 80061; 81001; 81003; 82105; 82248; 82270; 82550; 82607; 82728; 82746; 82803; 82962; 82977; 83020; 83036; 83090; 83540; 83550; 83605; 83690; 83735; 83880; 84100; 84133; 84443; 84484; 84550; 85007; 85025; 85044; 85060; 85379; 85384; 85610; 85730; 86140; 86300; 86304; 86703; 86705; 86709; 86803; 86850; 86900; 86901; 87040; 87070; 87086; 87181; 87205; 87340; 89050; 92950; 93005; 93970; 94660; 94664; 94760; J1815; J2405